=== PATIENT | male | born 1945 | race Caucasian/White ===

== ENCOUNTER 2016-06-08 16:48 | Inpatient (IN) | payer OTHER ==
[~2016-06-08] VITALS: Ht 175.3 cm; Wt 72.6 kg
[2016-06-08 16:52] VITALS: BP 110/69
--- NOTE | 2016-06-08 17:08 | NUR ---
DR. JANSEN AT BEDSIDE.
--- NOTE | 2016-06-08 17:13 | NUR ---
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 ER MD MADE AWARE OF PT STATUS.
[2016-06-08] MEDS ORDERED: NACL 0.9% 1,000 ML IV SCH (17:14)
--- NOTE | 2016-06-08 17:15 | NUR ---
CLEM SALDIVAR RYAN LEFT CONTACT PHONE NUMBERS TEL , FAX
--- NOTE | 2016-06-08 18:40 | NUR ---
AAO PT AMBULATES TO THE RESTROOM
--- NOTE | 2016-06-08 18:47 | NUR ---
PT AMBULATES BACK TO BED, PLACED BACK ON MONITOR, NO C/O PAIN AT THIS TIME
[2016-06-08] MEDS ORDERED: HYDROcodone/APAP 7.5/325 MG 1 TAB PO PRN (19:10)
[2016-06-08] MEDS ORDERED: ONDANSETRON 4 MG/2 ML VIAL IVP PRN (19:10)
[2016-06-08] MEDS ORDERED: NACL 0.9% 1,000 ML IV ONE (19:10)
[2016-06-08] MEDS ORDERED: MORPHINE SULFATE 2 MG/ML SYR IVP PRN (19:10)
[2016-06-08] MEDS ORDERED: ACETAMINOPHEN 325 MG TAB PO PRN (19:10)
--- NOTE | 2016-06-08 19:24 | NUR ---
REPORT GIVEN TO RICHIE MORRISON
--- NOTE | 2016-06-08 20:04 | NUR ---
Patient will be admitted to care of DR. SANCHEZ. Admited to TELE. Will go to room 110A. Belongings list completed. Report to RICHIE RUEDA.
[2016-06-08] MEDS ORDERED: CLARITIN10 MG PO (20:14)
[2016-06-08] MEDS ORDERED: FLONASE NASAL50 MCG NS (20:14)
[2016-06-08] MEDS ORDERED: SEROQUEL100 MG PO (20:14)
--- NOTE | 2016-06-08 20:31 | NUR ---
Pt report given to RICHIE RUEDA. Transfer of care at this time.
--- NOTE | 2016-06-08 20:50 | NUR ---
PATIENT ARRIVED TO UNIT FROM ED VIA GURNEY, PATIENT IS AWAKE, AAO X4, ON ROOM AIR, NO SOB OR SIGN OF DISTRESS AT THIS TIME, PATIENT IS AMBULATORY AND STEADY ON HIS FEET. PATIENT SKIN IS INTACT, IV TO RIGHT FOREARM 20G PATENT AND INTACT. PATIENT DENIES PAIN AT THIS TIME. PATIENT VOIDED IN THE URINAL, NOTED DARK RED URINE, PATIENT STATES THATS HOW HIS URINE HAS LOOKED. DENIES PAIN WITH URINATION JUST STATED HE HAS INCREASED URGENCY. DISCUSSED PLAN OF CARE WITH PATIENT, PT VERBALIZED UNDERSTANDING. ORIENTED PT TO ROOM AND CALL LIGHT, SAFETY MEASURES CHECKED, CALL LIGHT WITHIN REACH, WILL CONTINUE TO MONITOR.
--- NOTE | 2016-06-08 22:00 | NUR ---
PATIENT UP RESTING IN BED WATCHING TV, NO SIGN OF DISTRESS, CALL LIGHT WITHIN REACH. WILL CONTINUE TO MONITOR.
[2016-06-09] VITALS: BP 133/76
[2016-06-09] MEDS ORDERED: INFLUENZA VIRUS VACCINE QUAD 0.5 ML SYR IMVAC PRN
[2016-06-09] MEDS ORDERED: PNEUMOCOCCAL VACCINE 23 MCG/0.5 ML VIAL IMVAC PRN
--- NOTE | 2016-06-09 00:45 | NUR ---
VITAL SIGNS STABLE, NO SOB OR SIGN OF DISTRESS, PATIENT UP RESTING IN BED. NO COMPLAINTS AT THIS TIME. PATIENT CONTINUING TO VOID DARK RED URINE. WILL CONTINUE TO MONITOR.
--- NOTE | 2016-06-09 02:21 | NUR ---
PATIENT SLEEPING COMFORTABLE IN BED, NO SOB OR SIGN OF DISTRESS AT THIS TIME, CALL LIGHT WITHIN REACH. WILL CONTINUE TO MONITOR. EMPTIED URINAL OF 600ML RED URINE
[2016-06-09 04:00] VITALS: BP 138/82
--- NOTE | 2016-06-09 04:18 | NUR ---
VITAL SIGNS STABLE, NO SOB OR SIGN OF DISTRESS, PATIENT UP RESTING IN BED, CALL LIGHT WITHIN REACH. WILL CONTINUE TO MONITOR
--- NOTE | 2016-06-09 07:30 | NUR ---
RECEIVED PT ON BED AAOX4. NO SOB NOTED. NO C/O PAIN AT THIS TIME. IV TO RIGHT FOREARM PATENT AND INTACT. CHEST CLEAR. ABDOMEN SOFT, BOWEL SOUNDS PRESENT. NO EDEMA NOTED. PT URINATING LARGE AMOUNTS OF BLOODY URINE, NO CLOTS NOTED. INSTRUCTED PT TO CALL FOR ASSISTANCE, CALL LIGHT WITHIN REACH, PT VERBALIZED UNDERSTANDING.
--- NOTE | 2016-06-09 07:32 | NUR ---
ENDORSED PATIENT TO DAY RN AT BEDSIDE, PATIENT IN STABLE CONDITION.
[2016-06-09 08:00] VITALS: BP 104/72
--- NOTE | 2016-06-09 08:37 | NUR ---
PATIENT HAS BEEN SCREENED AND CATEGORIZED MODERATE NUTRITION RISK. PATIENT WILL BE SEEN WITHIN 3-5 DAYS OF ADMISSION. 06/11/16-06/13/[address]
[2016-06-09] MEDS: DOCUSATE SODIUM 100 MG GELCAP PO SCH (09:29)
[2016-06-09] MEDS: FAMOTIDINE 20 MG TAB PO SCH (09:29)
--- NOTE | 2016-06-09 10:30 | NUR ---
PT HAS BEEN URINAL LARGE AMOUNTS OF BLOODY URINE. NO C/O PAIN. DR. LAGUNA (DR. SANCHEZ RESIDENT) MADE AWARE.
[2016-06-09 12:00] VITALS: BP 125/72
[2016-06-09] MEDS ORDERED: INSULIN LISPRO SLIDING SCALE 100 UNITS/ML VIAL SUBQ PRN ×2 (12:55)
[2016-06-09] MEDS ORDERED: DEXTROSE 50% 50 ML SYR IVP PRN ×2 (12:55)
--- NOTE | 2016-06-09 13:00 | NUR ---
PT ALREADY ATE LUNCH, CONSUMED 100% OF FOOD SERVED, TOLERATED WELL. INSTRUCTED PT NPO UNTIL DR. SEBASTIAN WILL COME TO SEE PT TODAY. PT VERBALIZED UNDERSTANDING.
[2016-06-09] MEDS: NACL 0.9% 1,000 ML IV SCH ×3 (13:10→22:16)
[2016-06-09 16:00] VITALS: BP 108/70
--- NOTE | 2016-06-09 16:00 | NUR ---
PT RESTING. NO SOB NOTED. NPO MAINTAINED.
[2016-06-09] MEDS ORDERED: BLOOD GLUCOSE MONITORING 1 DEV DEV FS SCH (16:30)
[2016-06-09] MEDS: BLOOD GLUCOSE MONITORING 1 DEV DEV FS SCH ×2 (17:16→21:25)
--- NOTE | 2016-06-09 18:00 | NUR ---
DR. NICOLE HERE TO SEE PT.
--- NOTE | 2016-06-09 19:20 | NUR ---
PT AWAKE, NO SOB NOTED. NO COMPLAINTS MADE. WILL ENDORSE TO NEXT SHIFT NURSE FOR CONTINUITY OF CARE.
--- NOTE | 2016-06-09 19:25 | NUR ---
RECEIVED FROM AM RN IN BED SITTING UP AND WATCHING TV. A/O X 4. CLEAR SPEECH. CALL LIGHT WITH IN REACH AND CARE PLANS FOR THE NIGHT DISCUSSED WITH PT. ENCOURAGED TO USE CALL LIGHT FOR ANY HELP HE MAY NEED OR IF IN PAIN. NO PAIN AT THIS TIME. TELEMETRY MONITORING.
[2016-06-09 20:03] VITALS: BP 126/79
[2016-06-09] MEDS ORDERED: QUEtiapine FUMARATE 100 MG TAB PO SCH (21:00)
[2016-06-09] MEDS: CALCIUM CARBONATE 500 MG TAB PO SCH (21:20)
[2016-06-09] MEDS: FLUTICASONE NASAL 50 MCG/ACTUATION 16 GM BTL NS SCH (21:20)
--- NOTE | 2016-06-09 22:00 | NUR ---
AWAKE AND WATCHING TV. NO COMPLAINTS DONE. SEEN BY MD SEBASTIAN EARLIER. NO ORDERS GIVEN.
[2016-06-10 00:29] VITALS: BP 103/70
--- NOTE | 2016-06-10 00:53 | NUR ---
SLEEPING AT THIS TIME. NO SOB. CALL LIGHT WITH IN REACH. NO RESTLESSNESS NOTED.
--- NOTE | 2016-06-10 02:20 | NUR ---
SLEEPING. NO RESTLESSNESS. IVF SITE TO RIGHT FOREARM INTACT AND NO INFILTRATION. WITH GOOD BLOOD RETURN.
[2016-06-10 04:00] VITALS: BP 85/52
--- NOTE | 2016-06-10 04:00 | NUR ---
PT. AWAKE AND WENT TO RESTROOM TO URINATE. STILL WITH REDDISH URINE NOTED. IVF CONTINUOS. PT. MOSTLY INDEPENDENT BUT WITH DISORIENTATION AT TIMES. NO DIZZINESS NOTED. TELEMETRY MONITORING.
--- NOTE | 2016-06-10 05:58 | NUR ---
NIKUNJ NEVAREZ BIOMEDICAL INSTRUMENT TECHNICIAN FOR RHODA ALEMAN WHICH IS MD GÓMEZ. WILL RELAY BP OF 82/46 . PT. ALERT WHEN AWAKE. ASYMPTOMATIC. TELEMETRY MONITORING.
--- NOTE | 2016-06-10 06:22 | NUR ---
MD GÓMEZ CALLED BACK AND STATED THAT WE WILL WAIT FOR AM HEMOGLOBIN RESULT AND LET THE AM RESIDENTS TAKE CARE OF IT. MADE CHARGE NURSE AWARE.
[2016-06-10] MEDS: NACL 0.9% 1,000 ML IV SCH (06:37)
[2016-06-10] MEDS: BLOOD GLUCOSE MONITORING 1 DEV DEV FS SCH ×2 (06:37→11:30)
--- NOTE | 2016-06-10 07:15 | NUR ---
RECEIVED PATIENT REPORT AT BEDSIDE. PATIENT AWAKE, ALERT AND ORIENTED. NO S/S OF DISTRESS NOTED. NO C/O OF PAIN. PATIENT ON ROOM AIR. IV TO THE RIGHT FA INTACT WITH IVF INFUSING WELL. PATIENT ON TELE MONITORING. BED LOWERED WITH CALL LIGHT WITHIN REACH. WILL CONTINUE TO MONITOR
[2016-06-10 08:00] VITALS: BP 108/70
[2016-06-10] MEDS ORDERED: ASPIRIN 81 MG TAB.CHEW PO SCH (09:00)
[2016-06-10] MEDS ORDERED: LORATADINE 10 MG TAB PO SCH (09:00)
[2016-06-10] MEDS: FAMOTIDINE 20 MG TAB PO SCH (09:15)
[2016-06-10] MEDS: DOCUSATE SODIUM 100 MG GELCAP PO SCH (09:15)
[2016-06-10] MEDS: FLUTICASONE NASAL 50 MCG/ACTUATION 16 GM BTL NS SCH (09:16)
[2016-06-10] MEDS: CALCIUM CARBONATE 500 MG TAB PO SCH (09:16)
--- NOTE | 2016-06-10 11:21 | NUR ---
CONSENT OBTAINED FROM THE PATIENT FOR CT
[2016-06-10 12:00] VITALS: BP 103/67
[2016-06-10] MEDS ORDERED: SIMVASTATIN20 M1 PO (12:01)
[2016-06-10] MEDS ORDERED: ASPIRIN ADULT L81 M1 PO (12:01)
--- NOTE | 2016-06-10 13:30 | NUR ---
PATIENT IN BED, WATCHING TELEVISION. NO S/S OF DISTRESS NOTED
--- NOTE | 2016-06-10 14:10 | NUR ---
CALLED PATIENT'S COMPUTER PROGRAMMING PROFESSOR REGARDING D/C HOME , THEY WILL BE HERE AT 3PM TO COMPENSATION AGENT PATIENT.
[2016-06-10] MEDS ORDERED: NATURAL IRON65 MG PO (14:22)
--- NOTE | 2016-06-10 15:00 | NUR ---
PATIENT DISCHARGED BACK TO BOARD AND CARE. DISCHARGE INSTRUCTIONS AND DISCHARGE PRESCRIPTIONS GIVEN. PATIENT VERBALIZED UNDERSTANDING. IV LINE DISCONTINUED. TELE LEADS TAKEN OFF. PATIENT SIGNED ALL HIS DISCHARGE PAPERS. PATIENT LEFT WITH ALL HIS BELONGINGS AND DISCHARGE DOCUMENTS. PATIENT LEFT IN STABLE CONDITION
[2016-06-10] MEDS ORDERED: SIMVASTATIN 20 MG TAB PO SCH (21:00)
== END 2016-06-10 15:00 | DRG 686 ==
LOC: MED 16:48 → MTU 19:14
PROVIDERS: ADMIT Family Medicine; ATTEND Family Medicine
DX: D49.4 Neoplasm of unspecified behavior of bladder (principal); N17.0 Acute kidney failure with tubular necrosis; D50.0 Iron deficiency anemia secondary to blood loss (chronic); I10 Essential (primary) hypertension; E78.00 Pure hypercholesterolemia, unspecified; M19.90 Unspecified osteoarthritis, unspecified site; F20.9 Schizophrenia, unspecified; F17.210 Nicotine dependence, cigarettes, uncomplicated; E83.51 Hypocalcemia; E11.51 Type 2 diabetes mellitus with diabetic peripheral angiopathy without gangrene; I73.9 Peripheral vascular disease, unspecified; Z79.899 Other long term (current) drug therapy

== ENCOUNTER 2017-07-06 12:33 | Inpatient (IN) | payer OTHER ==
[~2017-07-06] VITALS: Ht 175.3 cm; Wt 57.6 kg
[~2017-07-06 12:33] MED LIST: FERR-252 PO; FLONAS NS; LORA10TA19 PO; QUET100T PO; SIMV20TA6 PO
[2017-07-06 12:41] VITALS: BP 109/66
--- NOTE | 2017-07-06 13:44 | NUR ---
RECEIVED PT FROM TRIAGE, PT LAYING DOWN ON GURNEY, CAREGIVER/PERFORATOR LOADER AT BEDSIDE. PT HERE FOR HEMATURIA X 3 MONTHS, DENIES FEVERS/CHILLS. DENIES ABD PAIN,N,V,D. RESP EVEN AND UNLABORED, IN NAD. ABD SOFT, FLAT, NON TENDER. +BS X4 QUADS. PER PT , HE'S BEEN FOLLOWING UP WITH UROLOGIST-UNCLEAR OF DIAGNOSIS OR TREATMENT. SKIN PALE IN COLOR, DRY. PT ONLY REPORTS SCHIZOPHRENIA HISTORY. ER MD DR BLANKENSHIP NOTIFIED OF PT'S COMPLAINT. TOÑA FOR ER MD HIGH. URINAL PROVIDED FOR URINE COLLECTION.
[2017-07-06] MEDS ORDERED: NACL 0.9% 1,000 ML IV SCH (14:22)
[2017-07-06 14:51] LABS: WHITE BLOOD COUNT (AUTO) 6.4 K/uL (4.8-10.8)
[2017-07-06 14:55] LABS: MEAN CORPUSCULAR HEMOGLOBIN 24 pg (27-31); MEAN CORPUSCULAR HGB CONC 32 g/dL (33-37); MEAN CORPUSCULAR VOLUME 74.1 fL (80-94); PLATELET COUNT (AUTO) 160 K/uL (140-450); RED BLOOD CELL COUNT(AUTO) 2.22 MIL/uL (4.20-6.10); RED CELL DISTRIBUTION WIDTH 39.1 % (11.6-13.7)
[2017-07-06 15:02] LABS: HEMATOCRIT 16.5 % (36-52); HEMOGLOBIN 5.2 g/dL (12.0-18.0)
[2017-07-06] MEDS ORDERED: INSULIN LISPRO SLIDING SCALE 100 UNITS/ML VIAL SUBQ PRN (15:15)
[2017-07-06] MEDS ORDERED: ACETAMINOPHEN 325 MG TAB PO PRN (15:15)
[2017-07-06] MEDS ORDERED: DEXTROSE 50% 50 ML SYR IVP PRN (15:15)
[2017-07-06] MEDS ORDERED: HYDROcodone/APAP 5/325 MG 1 TAB TAB PO PRN (15:15)
[2017-07-06] MEDS ORDERED: ONDANSETRON 4 MG/2 ML VIAL IVP PRN (15:15)
[2017-07-06 15:17] LABS: LYMPHOCYTES % (MANUAL) 22 % (20-46); MONOCYTES % (MANUAL) 3 % (5-12)
--- NOTE | 2017-07-06 15:20 | NUR ---
Urine collected and taken to lab.
[2017-07-06 15:38] LABS: APPEARANCE,URINE TURBID (CLEAR); BLOOD, URINE 3+ (NEGATIVE); COLOR,URINE RED (YELLOW)
[2017-07-06 15:47] LABS: RBC,URINE TOO NUMEROUS TO COUN /HPF (0-5)
[2017-07-06 15:48] LABS: WBC,URINE 0-5 (RARE) /HPF (0-5)
[2017-07-06 15:56] LABS: ALBUMIN 3.1 g/dL (3.4-5.0); CARBON DIOXIDE 27.5 mmol/L (21-32); CREATININE 0.8 mg/dL (0.7-1.3); POTASSIUM 3.5 mmol/L (3.5-5.1); TOTAL BILIRUBIN 0.2 mg/dL (0.0-1.0)
[2017-07-06 16:25] LABS: PROTHROMBIN TIME 10.5 secs (10.8-13.4)
[2017-07-06 16:34] LABS: CHOL/HDL RATIO 2.1 (1-4.5); FREE T4 (FREE THYROXINE) 0.93 ng/dL (0.76-1.46); THYROID STIMULATING HORMONE 0.66 uIU/mL (0.34-3.74)
[2017-07-06 16:43] LABS: BARBITURATE, URINE NEG. ng/ml (NEG <=200); BENZODIAZEPINE, URINE NEG. ng/mL (NEG <=200); CANNABINOID, URINE NEG. ng/mL (NEG <=50); COCAINE, URINE NEG. ng/mL (NEG <=300); OPIATE, URINE NEG. ng/mL (NEG <=2000); PHENCYCLIDINE SCREEN,URINE NEG. ng/mL (NEG <=25)
--- NOTE | 2017-07-06 16:50 | NUR ---
Patient will be admitted to care of RICHIE Robins. Admited to Tele, ICU. Will go to room 2 ICU. Belongings list completed. Pt tolerated transfer well.
--- NOTE | 2017-07-06 17:15 | NUR ---
PT RECEIVED FROM ER VIA UmaChaka MediaKRISTIAN. PT A/O X4, ABLE TO VERBALIZE NEEDS. PT ORIENTED TO ICU, BED, STAFF. PUPILS REACTIVE TO LIGHT. SKIN PALE, DRY AND WARM TO TOUCH. LUNGS SOUND DIMINISHED. RIGHT AC 20 G. INTACT. ABDOMEN SOFT, ROUND AND NON-TENDER. ACTIVE BOWEL SOUND IN ALL FOUR QUADRANTS. SKIN INTACT. KEPT HOB ELEVATED. BED IN LOW POSITION LOCKED. WILL CONTINUE TO MONITOR.
--- NOTE | 2017-07-06 17:45 | NUR ---
STARTED BLOOD TRANSFUSION.
--- NOTE | 2017-07-06 18:00 | NUR ---
NO BT REACTION NOTED.
[2017-07-06] MEDS: BLOOD GLUCOSE MONITORING 1 DEV DEV FS SCH ×2 (19:20→21:08)
[2017-07-06] MEDS: FERRIC GLUCONATE 125 MG in NACL 0.9% 100 ML IV SCH (19:27)
--- NOTE | 2017-07-06 19:35 | NUR ---
REPORT RECEIVED FROM MORNING RN. PT IS AWAKE AND VERBAL. A&O X3. PERRL. BILATERAL LUNG SOUNDS DIMINISHED. RR EVEN AND UNLABORED. BILATERAL HANDS PHYSICAL THERAPY AID EQUAL. CAP REFILL WITHIN 3 SEC. PRBC BLOOD TRANSFUSION IS INFUSING. SIGNED CONSENT CHECKED. VS WITHOUT ACUTE DISTRESS. IV LINES TO RIGHT AC 20G AND LEFT WRIST 22G. ASYMPTOMATIC AND PATENT. DENIES PAIN OR DISCOMFORT. USES URINAL AND NOTED HEMATURIA. AFEBRILE. CALL LIGHT IN REACH AND BED KEPT TO THE LOWEST. WILL CONTINUE TO MONITOR.
--- NOTE | 2017-07-06 19:40 | NUR ---
REPORT GIVEN TO NOC SHIFT RN FOR CONTINUITY OF CARE. PT ON STABLE CONDITION.
[2017-07-06 20:00] VITALS: BP 128/78
--- NOTE | 2017-07-06 20:50 | NUR ---
1ST BAG OF PRBC TRANSFUSION COMPLETED WITHOUT ANY A/R.
--- NOTE | 2017-07-06 20:50 | NUR ---
2ND BAG OF PRBC STARTED. WILL CONTINUE TO MONITOR FOR ANY A/R.
[2017-07-06] MEDS: SIMVASTATIN 20 MG TAB PO SCH (21:08)
[2017-07-06] MEDS: QUEtiapine FUMARATE 100 MG TAB PO SCH (21:08)
--- NOTE | 2017-07-06 21:13 | NUR ---
MEDICATIONS ADMINISTERED ORDERED. BD=[id number]. NO INSULIN COVERAGE NEEDED. ASSISTED PT WITH URINAL AND NOTED 250ML OF HEMATURIA-LEE COLOR. WILL CONTINUE TO MONITOR.
[2017-07-07] VITALS (7 sets, daily range): BP systolic 110–151; BP diastolic 69–92
--- NOTE | 2017-07-07 00:03 | NUR ---
NEW ORDER FOR CBC NOTED BUT PRBC TRANSFUSION STILL ON GOING. LABORATORY MADE AWARE.
--- NOTE | 2017-07-07 00:20 | NUR ---
2ND PRBC TRANSFUSION COMPLETED. VS STABLE. PT CONTNUES TO HAVE BRIGHT RED URINE IN THE URINAL. DENIES PAIN. WILL CONTINUE TO MONITOR.
--- NOTE | 2017-07-07 00:39 | NUR ---
PT WILL BE TRANSFERRING TO TELEMETRY ROOM 119A. PT MADE AWARE.
--- NOTE | 2017-07-07 01:35 | NUR ---
REPORT GIVEN TO RICHIE FRANCE IN TELEMETRY FOR CONTINUITY OF CARE. PT WILL BE TRANSFERRED TO TELEMETRY ROOM 119A. PT VS STABLE. PT LEFT WITH ALL HIS BELONGINGS AND ON TELEMETRY BOX.
--- NOTE | 2017-07-07 01:36 | NUR ---
PT TRANSFERRED FROM ICU IN STABLE CONDITION. NO S/S OF DISTRESS NOTED. RR EVEN/UNLABORED, VSS. WILL CONTINUE TO MONITOR
--- NOTE | 2017-07-07 02:39 | NUR ---
LAB HERE FOR CBC DRAW
[2017-07-07 03:51] LABS: BASOPHILS # (AUTO) 0.1 K/uL (0.00-0.22); EOSINOPHILS # (AUTO) 0.1 K/uL (0-0.4); MEAN CORPUSCULAR HEMOGLOBIN 25 pg (27-31); MONOCYTES # (AUTO) 0.4 K/uL (0.8-1.0); PLATELET COUNT (AUTO) 153 K/uL (140-450); WHITE BLOOD COUNT (AUTO) 4.7 K/uL (4.8-10.8)
[2017-07-07 03:57] LABS: BASOPHILS % (AUTO) 1.4 % (0.0-2.0); EOSINOPHILS % (AUTO) 2.4 % (0.0-4.0); HEMATOCRIT 22.5 % (36-52); HEMOGLOBIN 7.2 g/dL (12.0-18.0); LYMPHOCYTES # (AUTO) 1.3 K/uL (2.0-11.5); LYMPHOCYTES % (AUTO) 27.5 % (20.5-51.1); MEAN CORPUSCULAR HGB CONC 32 g/dL (33-37); MEAN CORPUSCULAR VOLUME 77.6 fL (80-94); MONOCYTES % (AUTO) 8.6 % (1.7-9.3); NEUTROPHILS # (AUTO) 2.8 K/uL (1.8-7.7); NEUTROPHILS % (AUTO) 60.1 % (42.2-75.2); RED BLOOD CELL COUNT(AUTO) 2.91 MIL/uL (4.20-6.10)
[2017-07-07 04:08] LABS: RED CELL DISTRIBUTION WIDTH 32.9 % (11.6-13.7)
[2017-07-07 06:28] LABS: BASOPHILS # (AUTO) 0.1 K/uL (0.00-0.22); BASOPHILS % (AUTO) 1.1 % (0.0-2.0); EOSINOPHILS # (AUTO) 0.2 K/uL (0-0.4); EOSINOPHILS % (AUTO) 3.6 % (0.0-4.0); HEMATOCRIT 22.9 % (36-52); HEMOGLOBIN 7.2 g/dL (12.0-18.0); LYMPHOCYTES # (AUTO) 1.4 K/uL (2.0-11.5); LYMPHOCYTES % (AUTO) 26.5 % (20.5-51.1); MEAN CORPUSCULAR HEMOGLOBIN 24 pg (27-31); MEAN CORPUSCULAR HGB CONC 31 g/dL (33-37); MEAN CORPUSCULAR VOLUME 77.8 fL (80-94); MONOCYTES # (AUTO) 0.4 K/uL (0.8-1.0); MONOCYTES % (AUTO) 8.3 % (1.7-9.3); NEUTROPHILS # (AUTO) 3.2 K/uL (1.8-7.7); NEUTROPHILS % (AUTO) 60.5 % (42.2-75.2); PLATELET COUNT (AUTO) 157 K/uL (140-450); RED BLOOD CELL COUNT(AUTO) 2.95 MIL/uL (4.20-6.10); RED CELL DISTRIBUTION WIDTH 32.9 % (11.6-13.7); WHITE BLOOD COUNT (AUTO) 5.2 K/uL (4.8-10.8)
--- NOTE | 2017-07-07 06:29 | NUR ---
MADE JAMIE AWARE THAT PT IS READY TO GO FOR CT
[2017-07-07] MEDS: BLOOD GLUCOSE MONITORING 1 DEV DEV FS SCH ×4 (06:30→20:12)
--- NOTE | 2017-07-07 07:23 | NUR ---
REPORT GIVEN TO DAY NURSE FOR CONTINUITY OF CARE, PT IN STABLE CONDITION.
[2017-07-07 07:24] LABS: ANION GAP 11.1 (8-16); CARBON DIOXIDE 26.7 mmol/L (21-32); CREATININE 0.7 mg/dL (0.7-1.3); POTASSIUM 3.8 mmol/L (3.5-5.1)
--- NOTE | 2017-07-07 07:24 | NUR ---
PATIENT LYING DOWN IN BED SLEEPING, AROUSABLE BY VOICE. NO DISTRESS NOTED. DENIES ANY PAIN AT THIS TIME. RESPIRATIONS EVEN, UNLABORED, ON ROOM AIR. AAOX4, CALM, COOPERATIVE, SKIN COLOR APPROPRIATE TO ETHNICITY, WARM TO TOUCH. SKIN IS INTACT. GROSS HEMATURIA NOTED IN URINE AT URINAL AT BEDSIDE. LUNGS CTA ON ALL LOBES. ABDOMEN SOFT, NON-DISTENDED. IV SITE INTACT, PATENT AND ON SALINE LOCK. REVIEWED PLAN OF CARE WITH PATIENT. PATIENT VERBALIZED UNDERSTANDING AND GIVES CONSENT TO DO CT SCAN OF ABD/PELVIS W/WO CONTRAST LATER TODAY. SAFETY MEASURES IN PLACE, CALL LIGHT WITHIN REACH. WILL CONTINUE TO MONITOR.
[2017-07-07 07:36] LABS: MAGNESIUM 2.2 mg/dL (1.8-2.4); PHOSPHORUS 3.6 mg/dL (2.5-4.9)
[2017-07-07] MEDS: FLUTICASONE NASAL 50 MCG/ACTUATION 16 GM BTL NS SCH (09:00)
[2017-07-07] MEDS: PANTOPRAZOLE 40 MG TABEC PO SCH (09:15)
[2017-07-07] MEDS: LORATADINE 10 MG TAB PO SCH (09:15)
[2017-07-07] MEDS: DOCUSATE SODIUM 100 MG GELCAP PO SCH (09:15)
[2017-07-07] MEDS: FERROUS SULFATE 325 MG TABEC PO SCH (09:16)
--- NOTE | 2017-07-07 09:28 | NUR ---
PATIENT LYING DOWN IN BED COMFORTABLY. NO DISTRESS NOTED. DENIES ANY PAIN. SCHEDULED MEDICATIONS DUE GIVEN. RADIOLOGIST TO COME ASSEMBLER FILTERS PATIENT FOR CT ABD/PELVIS W/WO CONTRAST SOON. PATIENT NOTIFIED AND VERBALIZED UNDERSTANDING. SAFETY MEASURES IN PLACE, CALL LIGHT WITHIN REACH. WILL CONTINUE TO MONITOR.
--- NOTE | 2017-07-07 09:36 | NUR ---
RADIOLOGIST AT BEDSIDE READY TO TAKE PATIENT TO RADIOLOGY FOR CT SCAN OF ABD/PELVIS. WILL CONTINUE TO MONITOR WHEN PATIENT RETURNS TO BED.
--- NOTE | 2017-07-07 10:00 | NUR ---
PATIENT BACK TO [facility] BED FROM RADIOLOGIST. SAFETY MEASURES IN PLACE, CALL LIGHT WITHIN REACH. WILL CONTINUE TO MONITOR.
--- NOTE | 2017-07-07 10:33 | NUR ---
PATIENT HAS BEEN SCREENED AND CATEGORIZED MODERATE NUTRITION RISK. PATIENT WILL BE SEEN WITHIN 3-5 DAYS OF ADMISSION. 07/09/17 - 07/11/[address]
[2017-07-07 12:29] LABS: FOLIC ACID 13.8 ng/mL (>3.0)
--- NOTE | 2017-07-07 13:00 | NUR ---
PATIENT SITTING IN BED WATCHING TV WITH LUNCH TRAY IN FRONT. NO DISTRESS NOTED. DENIES ANY PAIN AT THIS TIME. CONTINUES TO HAVE HEMATURIA WITH LEE COLORED URINE IN URINAL. SAFETY MEASURES IN PLACE, CALL LIGHT WITHIN REACH. WILL CONTINUE TO MONITOR.
--- NOTE | 2017-07-07 15:32 | NUR ---
PATIENT LYING IN BED WATCHING TV. NO DISTRESS NOTED. DENIES ANY PAIN. CONDITION UNCHANGED. WILL CONTINUE TO MONITOR.
[2017-07-07 17:20] LABS: BASOPHILS # (AUTO) 0.1 K/uL (0.00-0.22); EOSINOPHILS # (AUTO) 0.1 K/uL (0-0.4); EOSINOPHILS % (AUTO) 1.8 % (0.0-4.0); HEMATOCRIT 26.9 % (36-52); HEMOGLOBIN 8.8 g/dL (12.0-18.0); LYMPHOCYTES # (AUTO) 1.1 K/uL (2.0-11.5); MEAN CORPUSCULAR HEMOGLOBIN 25 pg (27-31); MEAN CORPUSCULAR HGB CONC 33 g/dL (33-37); MEAN CORPUSCULAR VOLUME 77.1 fL (80-94); MONOCYTES # (AUTO) 0.3 K/uL (0.8-1.0); MONOCYTES % (AUTO) 5.9 % (1.7-9.3); NEUTROPHILS # (AUTO) 3.9 K/uL (1.8-7.7); NEUTROPHILS % (AUTO) 71.3 % (42.2-75.2); PLATELET COUNT (AUTO) 191 K/uL (140-450); RED BLOOD CELL COUNT(AUTO) 3.49 MIL/uL (4.20-6.10); RED CELL DISTRIBUTION WIDTH 33.2 % (11.6-13.7)
[2017-07-07 17:59] LABS: WHITE BLOOD COUNT (AUTO) 5.4 K/uL (4.8-10.8)
[2017-07-07] MEDS: FERRIC GLUCONATE 125 MG in NACL 0.9% 100 ML IV SCH (17:59)
--- NOTE | 2017-07-07 18:01 | NUR ---
PATIENT SITTING IN BED WITH DINNER TRAY IN FRONT. NO DISTRESS NOTED. DENIES ANY PAIN. SCHEDULED MEDICATION DUE GIVEN. WILL CONTINUE TO MONITOR.
--- NOTE | 2017-07-07 19:30 | NUR ---
GAVE REPORT TO LEADERSHIP COACH NURSE FOR CONTINUITY OF CARE. PATIENT IN STABLE CONDITION.
--- NOTE | 2017-07-07 19:31 | NUR ---
RECEIVED REPORT FROM DAY NURSE, NO DISTRESS NOTED. DENIES ANY PAIN AT THIS TIME. RESPIRATIONS EVEN, UNLABORED, ON ROOM AIR. AAOX4, CALM, COOPERATIVE, SKIN COLOR WNL, WARM TO TOUCH. SKIN IS INTACT. GROSS HEMATURIA NOTED IN URINE AT URINAL AT BEDSIDE. LUNGS CTA ON ALL LOBES. ABDOMEN SOFT, NON-DISTENDED. IV SITE INTACT, PATENT AND ON SALINE LOCK. REVIEWED PLAN OF CARE WITH PATIENT. PATIENT VERBALIZED UNDERSTANDING AND GIVES CONSENT TO DO CT SCAN OF ABD/PELVIS W/WO CONTRAST LATER TODAY. SAFETY MEASURES IN PLACE, CALL LIGHT WITHIN REACH. WILL CONTINUE TO MONITOR.
[2017-07-07] MEDS: SIMVASTATIN 20 MG TAB PO SCH (20:12)
[2017-07-07] MEDS: QUEtiapine FUMARATE 100 MG TAB PO SCH (20:12)
--- NOTE | 2017-07-07 22:30 | NUR ---
PT RESTING COMFORTABLY IN BED, WATCHING TV, NO S/S OF DISTRESS NOTED. WILL CONTINUE TO MONITOR.
[2017-07-08] VITALS: BP 126/77
--- NOTE | 2017-07-08 | NUR ---
PT RESTING COMFORTABLY IN BED, NO S/S OF DISTRESS NOTED. WILL CONTINUE TO MONITOR.
--- NOTE | 2017-07-08 03:00 | NUR ---
PT RESTING COMFORTABLY IN BED, WATCHING TV, NO S/S OF DISTRESS NOTED. WILL CONTINUE TO MONITOR.
[2017-07-08 04:00] VITALS: BP 128/82
[2017-07-08] MEDS: BLOOD GLUCOSE MONITORING 1 DEV DEV FS SCH (06:46)
[2017-07-08 06:57] LABS: BASOPHILS # (AUTO) 0.1 K/uL (0.00-0.22); BASOPHILS % (AUTO) 1.1 % (0.0-2.0); EOSINOPHILS # (AUTO) 0.2 K/uL (0-0.4); EOSINOPHILS % (AUTO) 4.7 % (0.0-4.0); HEMATOCRIT 27.1 % (36-52); HEMOGLOBIN 8.7 g/dL (12.0-18.0); LYMPHOCYTES # (AUTO) 1.3 K/uL (2.0-11.5); LYMPHOCYTES % (AUTO) 24.1 % (20.5-51.1); MEAN CORPUSCULAR HEMOGLOBIN 25 pg (27-31); MEAN CORPUSCULAR HGB CONC 32 g/dL (33-37); MEAN CORPUSCULAR VOLUME 77.2 fL (80-94); MONOCYTES # (AUTO) 0.5 K/uL (0.8-1.0); MONOCYTES % (AUTO) 9.3 % (1.7-9.3); NEUTROPHILS # (AUTO) 3.2 K/uL (1.8-7.7); NEUTROPHILS % (AUTO) 60.8 % (42.2-75.2); PLATELET COUNT (AUTO) 207 K/uL (140-450); RED BLOOD CELL COUNT(AUTO) 3.52 MIL/uL (4.20-6.10); RED CELL DISTRIBUTION WIDTH 32.8 % (11.6-13.7); WHITE BLOOD COUNT (AUTO) 5.3 K/uL (4.8-10.8)
--- NOTE | 2017-07-08 07:11 | NUR ---
REPORT GIVEN TO DAY NURSE FOR CONTINUITY OF CARE, PT IN STABLE CONDITION.
--- NOTE | 2017-07-08 07:12 | NUR ---
RECEIVED REPORT FROM MBA INTERNSHIP NURSE. PATIENT LYING DOWN IN BED WATCHING TV. NO DISTRESS NOTED. DENIES ANY PAIN AT THIS TIME. RESPIRATIONS EVEN, UNLABORED, ON ROOM AIR. AAOX4, CALM, COOPERATIVE, SKIN COLOR APPROPRIATE TO ETHNICITY, WARM TO TOUCH. SKIN IS INTACT. HAS HEMATURIA WITH BRIGHT RED COLOR NOTED IN URINAL AT BEDSIDE. LUNGS CTA ON ALL LOBES. ABDOMEN SOFT, NON-DISTENDED. IV SITE INTACT PATENT, ON SALINE LOCK. REVIEWED PLAN OF CARE WITH PATIENT. PATIENT VERBALIZED UNDERSTANDING. SAFETY MEASURES IN PLACE, CALL LIGHT WITHIN REACH. WILL CONTINUE TO MONITOR.
[2017-07-08 08:00] VITALS: BP 98/60
[2017-07-08] MEDS ORDERED: ASCO500T45 PO (08:27)
[2017-07-08] MEDS ORDERED: FERR-20 PO (08:27)
[2017-07-08] MEDS: FLUTICASONE NASAL 50 MCG/ACTUATION 16 GM BTL NS SCH (09:00)
[2017-07-08] MEDS: DOCUSATE SODIUM 100 MG GELCAP PO SCH (09:17)
[2017-07-08] MEDS: FERROUS SULFATE 325 MG TABEC PO SCH (09:17)
[2017-07-08] MEDS: PANTOPRAZOLE 40 MG TABEC PO SCH (09:18)
[2017-07-08] MEDS: LORATADINE 10 MG TAB PO SCH (09:18)
--- NOTE | 2017-07-08 09:25 | NUR ---
PATIENT SITTING IN BED WATCHING TV. NO DISTRESS NOTED. DENIES ANY PAIN. SCHEDULED MEDICATIONS DUE GIVEN. WILL CONTINUE TO MONITOR.
--- NOTE | 2017-07-08 10:30 | NUR ---
PATIENT SITTING IN BED WATCHING TV. NO DISTRESS NOTED. PATIENT AWARE THAT HE WILL BE GOING BACK TO [facility] TODAY. CALLED [facility] AND GAVE REPORT TO MANAGER SCHOOL THERE. ANSWERED ALL OF MANAGER SCHOOL'S QUESTIONS. THEY WILL SEND SOMEONE TO TAKE PATIENT BACK TO [facility] IN AROUND 30 MINUTES. PROVIDED DISCHARGE INSTRUCTIONS TO PATIENT IN PREFERRED LANGUAGE OF INDONESIAN, FOLLOW-UP VISITS WITH PCP AND UROLOGIST FOR HEMATURIA AND BLADDER CA, NEW/CHANGED MEDICATIONS REGIMEN, DIET REGIMEN, AND DISEASE PROCESS/MANAGEMENT OF HEMATURIA. ANSWERED ALL OF PATIENT'S QUESTIONS REGARDING DISCHARGE. PATIENT VERBALIZED COMPLETE UNDERSTANDING. IV SITES REMOVED WITH MINIMAL BLOOD AND LUMEN COMPLETELY INTACT. ID BANDS REMOVED. PATIENT TO GET DRESSED AND AWAITING FOR [facility] TRANSPORTATION TO ARRIVE. WILL CONTINUE TO MONITOR.
--- NOTE | 2017-07-08 11:00 | NUR ---
[facility] TRANSPORTATION ARRIVED ON UNIT READY TO TAKE PATIENT HOME. PATIENT ALL DRESSED UP AND READY TO GO. ALL BELONGINGS AND PRESCRIPTIONS WITH PATIENT. ESCORTED PATIENT DOWN TO LOBBY VIA WHEELCHAIR. PATIENT AMBULATED FROM WHEELCHAIR TO PRIVATE VEHICLE WITH STEADY GAIT. PATIENT DISCHARGED AT THIS TIME TO [facility] IN STABLE CONDITION.
[2017-07-08 12:50] LABS: CARBON DIOXIDE 25.7 mmol/L (21-32); POTASSIUM 3.7 mmol/L (3.5-5.1)
--- NOTE | 2017-07-08 12:57 | NUR ---
RECEIVED A CALL FROM [facility]. WAS TOLD THAT THE PRESCRIPTION FOR THIS PATIENT WAS NOT SIGNED. BERENICE QUIROZMARKETING COMMUNICATIONS ASSOCIATECLIENT CARE CONSULTANT SPOKE WITH DR. MARIANO AND INFORMED HER TO WRITE A NEW PRESCRIPTION AND HAVE IT FAXED TO HIS PHARMACY. I CALLED SUDHIR QUIROZ AND INFORMED HIM. THE PHARMACY IS [facility] IN [place]. PHONE [phone] FAX [phone]. HE WILL FOLLOW UP.
== END 2017-07-08 11:00 | disposition home or self-care (01) | DRG 698 ==
LOC: MED 12:33 → MTU 15:20 → MIC 16:18 → MTU 07-07 01:35
PROVIDERS: ADMIT Family Medicine Sports Medicine; ATTEND Family Medicine Sports Medicine
PROC: 30233N1 Transfusion of Nonautologous Red Blood Cells into Peripheral Vein, Percutaneous Approach (ICD-10-PCS; principal; 2017-07-06)
DX: N32.89 Other specified disorders of bladder (principal); N17.0 Acute kidney failure with tubular necrosis; D62 Acute posthemorrhagic anemia; F20.9 Schizophrenia, unspecified; E11.9 Type 2 diabetes mellitus without complications; E78.00 Pure hypercholesterolemia, unspecified; F17.210 Nicotine dependence, cigarettes, uncomplicated; M19.90 Unspecified osteoarthritis, unspecified site; Z79.899 Other long term (current) drug therapy; I10 Essential (primary) hypertension
CPT/HCPCS: 36415; 71045; 80048; 80053; 80305; 81001; 82140; 82150; 82607; 82728; 82746; 82948; 83036; 83540; 83605; 83690; 83735; 83880; 84100; 84154; 84439; 84443; 84479; 84484; 85025; 85045; 85610; 85730; 86886; 86900; 86901; 86920; 87081; 93005; 93925; 93970; 99285; J1815; J2916; J7030; P9016; Q0092; Q9967

== ENCOUNTER 2017-08-23 09:28 | Inpatient (IN) | payer OTHER ==
[~2017-08-23] VITALS: Ht 175.3 cm; Wt 63.0 kg
[~2017-08-23 09:28] MED LIST changes: +ASCO500T45 PO; +FERR-20 PO
[2017-08-23 09:32] VITALS: BP 80/56
[2017-08-23] MEDS ORDERED: CARB1TAB37 PO (09:35)
--- NOTE | 2017-08-23 09:37 | NUR ---
PT TAKEN BY WHEELCHAIR TO BED 11
--- NOTE | 2017-08-23 09:41 | NUR ---
Report given to Jennifer QUIROZ.
--- NOTE | 2017-08-23 09:41 | NUR ---
72Y/M BIB SELF C/O HEMATURIA X 2 DAYS FROM [facility].AAOX4 WITH EVEN AND STEADY GAIT; PATIENT STATES PAIN OF 0/10 AT THIS TIME; VSS; PATIENT POSITIONED FOR COMFORT; HOB ELEVATED; BEDRAILS UP X1; BED DOWN. ER MD MADE AWARE OF PT STATUS.
--- NOTE | 2017-08-23 09:45 | NUR ---
DR JANSEN EVALUATING AT BEDSIDE
--- NOTE | 2017-08-23 10:09 | NUR ---
Abel daly in [facility] - 08/23/17 at 1010 by MEDHT XRAY AT BEDSIDE
--- NOTE | 2017-08-23 10:10 | NUR ---
PT IS NOT ABLE TO GIVE URINE AT THIS TIME
--- NOTE | 2017-08-23 10:20 | NUR ---
LAB BY PT BEDSIDE
--- NOTE | 2017-08-23 10:31 | NUR ---
XRAY AT BEDSIDE
[2017-08-23 10:39] LABS: MEAN CORPUSCULAR HEMOGLOBIN 23 pg (27-31); MEAN CORPUSCULAR HGB CONC 31 g/dL (33-37)
--- NOTE | 2017-08-23 10:41 | NUR ---
LAB AT BEDSIDE TO GET 2ND CULTURES
[2017-08-23 10:45] LABS: MEAN CORPUSCULAR VOLUME 73.4 fL (80-94); PLATELET COUNT (AUTO) 266 K/uL (140-450); RED BLOOD CELL COUNT(AUTO) 2.57 MIL/uL (4.20-6.10); RED CELL DISTRIBUTION WIDTH 27.8 % (11.6-13.7)
[2017-08-23 10:51] LABS: ALBUMIN 3.8 g/dL (3.4-5.0); ANION GAP 13.2 (8-16); CARBON DIOXIDE 27.9 mmol/L (21-32); POTASSIUM 4.1 mmol/L (3.5-5.1); TOTAL BILIRUBIN 0.3 mg/dL (0.0-1.0)
[2017-08-23 10:58] LABS: HEMATOCRIT 18.9 % (36-52); HEMOGLOBIN 5.8 g/dL (12.0-18.0)
[2017-08-23 10:59] LABS: LYMPHOCYTES % (MANUAL) 26 % (20-46); MONOCYTES % (MANUAL) 4 % (5-12)
--- NOTE | 2017-08-23 11:05 | NUR ---
PT STILL NOTE ABLE TO GIVE URINE AT THIS TIME
[2017-08-23] MEDS ORDERED: NACL 0.9% 500 ML IV ONE (11:10)
[2017-08-23] MEDS ORDERED: ONDANSETRON 4 MG/2 ML VIAL IM/IVP PRN (11:40)
[2017-08-23] MEDS ORDERED: ACETAMINOPHEN 325 MG TAB PO PRN (11:40)
[2017-08-23] MEDS ORDERED: MORPHINE SULFATE 2 MG/ML SYR IVP PRN (11:40)
[2017-08-23] MEDS ORDERED: HYDROcodone/APAP 7.5/325 MG 1 TAB PO PRN (11:40)
[2017-08-23] MEDS ORDERED: DOCUSATE SODIUM 100 MG GELCAP PO PRN (11:40)
--- NOTE | 2017-08-23 12:02 | NUR ---
Patient will be admitted to care of DR. CASTRO. Admited to TELE FLOOR. Will go to room 110 B. Belongings list completed. Report to MICAH QUIROZ.
[2017-08-23 12:20] VITALS: BP 108/62
--- NOTE | 2017-08-23 12:20 | NUR ---
PATIENT BROUGHT TO UNIT VIA GURNEY FROM THE ER. RECEIVED BEDSIDE REPORT FROM MUSHROOM CUTTER PAMELA. PATIENT IS AAOX4, ON ROOM AIR, HAS NO SIGNS AND SYMPTOMS OF ACUTE DISTRESS NOTED AT THIS TIME. WAS ABLE TO AMBULATE FROM GURNEY TO BED WITH ASSISTANCE. HAS IV TO THE LEFT HAND 22G. SITE IS CLEAN, DRY, PATENT AND INTACT. ORIENTED PATIENT TO THE ROOM, EXPLAINED CALL LIGHT. VERBALIZED UNDERSTANDING. PROVIDED URINAL. BED IN LOWEST POSITION, SIDE RAILS UP X2, CALL LIGHT WITHIN REACH. WILL CONTINUE TO MONITOR.
[2017-08-23 13:06] LABS: FREE T4 (FREE THYROXINE) 0.81 ng/dL (0.76-1.46); MAGNESIUM 2.2 mg/dL (1.8-2.4); PHOSPHORUS 3.6 mg/dL (2.5-4.9); THYROID STIMULATING HORMONE 0.56 uIU/mL (0.34-3.74)
[2017-08-23] MEDS ORDERED: DEXTROSE 50% 50 ML SYR IVP PRN (14:05)
--- NOTE | 2017-08-23 14:15 | NUR ---
STARTED BLOOD TRANSFUSION ON PATIENT. TOLERATING WELL.
--- NOTE | 2017-08-23 14:45 | NUR ---
PATIENT IS TOLERATING BLOOD TRANSFUSION WELL. NO SIGNS AND SYMPTOMS OF ACUTE DISTRESS NOTED AT THIS TIME. WILL CONTINUE TO MONITOR.
[2017-08-23 16:00] VITALS: BP 104/65
--- NOTE | 2017-08-23 16:45 | NUR ---
BLOOD TRANSFUSION IS FINISHED. PATIENT TOLERATED WELL. WILL INFORM DR REGALADO.
[2017-08-23] MEDS: BLOOD GLUCOSE MONITORING 1 DEV DEV FS SCH ×2 (16:54→21:17)
[2017-08-23] MEDS ORDERED: MECLIZINE 25 MG TAB PO PRN (17:10)
[2017-08-23] MEDS: INSULIN LISPRO SLIDING SCALE 100 UNITS/ML VIAL SUBQ PRN (17:25)
[2017-08-23 17:49] LABS: BASOPHILS # (AUTO) 0.1 K/uL (0.00-0.22); BASOPHILS % (AUTO) 1.2 % (0.0-2.0); EOSINOPHILS % (AUTO) 0.5 % (0.0-4.0); LYMPHOCYTES # (AUTO) 1.2 K/uL (2.0-11.5); LYMPHOCYTES % (AUTO) 25.6 % (20.5-51.1); MEAN CORPUSCULAR HEMOGLOBIN 24 pg (27-31); MEAN CORPUSCULAR HGB CONC 32 g/dL (33-37); MEAN CORPUSCULAR VOLUME 76.2 fL (80-94); MONOCYTES # (AUTO) 0.3 K/uL (0.8-1.0); MONOCYTES % (AUTO) 7.5 % (1.7-9.3); NEUTROPHILS % (AUTO) 65.2 % (42.2-75.2); PLATELET COUNT (AUTO) 241 K/uL (140-450); WHITE BLOOD COUNT (AUTO) 4.5 K/uL (4.8-10.8)
[2017-08-23 17:53] LABS: HEMOGLOBIN 6.1 g/dL (12.0-18.0)
--- NOTE | 2017-08-23 19:15 | NUR ---
ENDORSED PATIENT TO MAINTENANCE APPRENTICE RN FOR CONTINUITY OF CARE. PATIENT IN STABLE CONDITION.
--- NOTE | 2017-08-23 19:16 | NUR ---
RECEIVED REPORT FROM DAY SHIFT NURSE MICAH-RICHIE. PATIENT IS AAOX4, ON ROOM AIR, IV TO THE LEFT HAND 22G. SITE IS CLEAN, DRY, PATENT AND INTACT. NO S/S OF RESPIRATORY DISTRESS OR DISCOMFORT NOTED AT THIS TIME. DISCUSSED PLAN OF CARE AND PT VERBALIZED UNDERSTANDING. UPDATED WHITE BOARD. BED IN LOWEST POSITION, SIDE RAILS UP X2, BED ALARM ON. BED SIDE TABLE AND CALL LIGHT WITHIN REACH. WILL CONTINUE TO MONITOR.
[2017-08-23 20:00] VITALS: BP 98/70
--- NOTE | 2017-08-23 20:15 | NUR ---
SECOND BAG OF RBC'S STARTED. PT TOLERATING WELL. WILL CONTINUE TO MONITOR.
[2017-08-23] MEDS: SIMVASTATIN 20 MG TAB PO SCH (21:14)
[2017-08-23] MEDS: CARBIDOPA/LEVODOPA 25/100 MG 1 TAB PO SCH (21:14)
[2017-08-23] MEDS: NACL 0.9% 1,000 ML IV SCH (21:17)
--- NOTE | 2017-08-23 21:20 | NUR ---
BLOOD GLUCOSE 96. SCHEDULED MEDICATIONS GIVEN AND TOLERATED WELL. NO S/S OF RESPIRATORY DISTRESS OR DISCOMFORT NOTED AT THIS TIME. WILL CONTINUE TO MONITOR.
--- NOTE | 2017-08-23 23:30 | NUR ---
SECOND BAG OF RBC'S TRANSFUSION HAS FINISHED. NO S/S OF RESPIRATORY DISTRESS OR DISCOMFORT NOTED AT THIS TIME. PT TOLERATED WELL. WILL CONTINUE TO MONITOR.
[2017-08-24] VITALS (7 sets, daily range): BP systolic 99–113; BP diastolic 56–76
--- NOTE | 2017-08-24 | NUR ---
VITAL SIGNS TAKEN AND TOLERATED WELL. NO S/S OF RESPIRATORY DISTRESS OR DISCOMFORT NOTED AT THIS TIME. WILL CONTINUE TO MONITOR.
[2017-08-24] MEDS: NACL 0.9% 1,000 ML IV SCH ×4 (00:16→21:51)
[2017-08-24 00:19] LABS: EOSINOPHILS % (AUTO) 1.1 % (0.0-4.0); HEMATOCRIT 22.8 % (36-52); HEMOGLOBIN 7.4 g/dL (12.0-18.0); LYMPHOCYTES # (AUTO) 1.5 K/uL (2.0-11.5); LYMPHOCYTES % (AUTO) 36.5 % (20.5-51.1); MEAN CORPUSCULAR HEMOGLOBIN 25 pg (27-31); MEAN CORPUSCULAR HGB CONC 32 g/dL (33-37); MEAN CORPUSCULAR VOLUME 77.3 fL (80-94); MONOCYTES # (AUTO) 0.4 K/uL (0.8-1.0); MONOCYTES % (AUTO) 9.2 % (1.7-9.3); NEUTROPHILS # (AUTO) 2.2 K/uL (1.8-7.7); NEUTROPHILS % (AUTO) 52.2 % (42.2-75.2); PLATELET COUNT (AUTO) 223 K/uL (140-450); RED BLOOD CELL COUNT(AUTO) 2.94 MIL/uL (4.20-6.10); RED CELL DISTRIBUTION WIDTH 25.3 % (11.6-13.7); WHITE BLOOD COUNT (AUTO) 4.2 K/uL (4.8-10.8)
--- NOTE | 2017-08-24 00:55 | NUR ---
WENT INTO PT ROOM TO SEE IF HE HAD A URINE SPECIMEN THAT NEEDS TO BE COLLECTED AND PT STATED HE HAD PULLED OUT A TOOTH THAT WAS BOTHERING HIM. HE SAID IT WAS "THE TOOTH THAT WAS STICKING OUT." HE ASKED ME FOR A TISSUE OR SOMETHING SO THAT I CAN THROW IT AWAY IN THE TRASH. I USED A DENTURE CUP FOR SAFE KEEPING AND PLACED A LABEL WITH PT NAME, TIME AND DATE OF INCIDENT. CHARGE NURSE SUSIE IS AWARE. WILL CONTINUE TO MONITOR.
--- NOTE | 2017-08-24 02:00 | NUR ---
PT RESTING IN BED. NO S/S OF RESPIRATORY DISTRESS OR DISCOMFORT NOTED AT THIS TIME. WILL CONTINUE TO MONITOR.
[2017-08-24 03:10] LABS: APPEARANCE,URINE CLOUDY (CLEAR); BILIRUBIN,URINE NEGATIVE (NEGATIVE); BLOOD, URINE 3+ (NEGATIVE); COLOR,URINE RED (YELLOW); LEUKOCYTE ESTERASE ,URINE NEGATIVE (NEGATIVE); NITRITE, URINE NEGATIVE (NEGATIVE); UGLUCOSE NEGATIVE (NEGATIVE)
[2017-08-24 03:36] LABS: BARBITURATE, URINE NEG. ng/ml (NEG <=200); BENZODIAZEPINE, URINE NEG. ng/mL (NEG <=200); CANNABINOID, URINE NEG. ng/mL (NEG <=50); COCAINE, URINE NEG. ng/mL (NEG <=300); OPIATE, URINE NEG. ng/mL (NEG <=2000); PHENCYCLIDINE SCREEN,URINE NEG. ng/mL (NEG <=25)
--- NOTE | 2017-08-24 04:00 | NUR ---
VITAL SIGNS TAKEN AND TOLERATED WELL. PT RESTING IN BED. NO S/S OF RESPIRATORY DISTRESS OR DISCOMFORT NOTED AT THIS TIME. WILL CONTINUE TO MONITOR.
[2017-08-24 04:45] LABS: RBC,URINE TOO NUMEROUS TO COUN /HPF (0-5)
--- NOTE | 2017-08-24 05:20 | NUR ---
PT OUT TO RADIOLOGY WITH ALISSA FOR CT SCAN VIA WHEELCHAIR.
[2017-08-24 06:21] LABS: FOLIC ACID 15.7 ng/mL (>3.0)
[2017-08-24] MEDS: BLOOD GLUCOSE MONITORING 1 DEV DEV FS SCH ×4 (06:22→21:04)
--- NOTE | 2017-08-24 06:22 | NUR ---
BLOOD GLUCOSE 98. PT TOLERATED WELL. NO S/S OF RESPIRATORY DISTRESS OR DISCOMFORT. WILL CONTINUE TO MONITOR.
[2017-08-24 06:35] LABS: HEMATOCRIT 24.5 % (36-52); HEMOGLOBIN 7.9 g/dL (12.0-18.0); MEAN CORPUSCULAR HEMOGLOBIN 25 pg (27-31); MEAN CORPUSCULAR HGB CONC 32 g/dL (33-37); MEAN CORPUSCULAR VOLUME 77.5 fL (80-94); PLATELET COUNT (AUTO) 239 K/uL (140-450); RED BLOOD CELL COUNT(AUTO) 3.16 MIL/uL (4.20-6.10); RED CELL DISTRIBUTION WIDTH 25.1 % (11.6-13.7); WHITE BLOOD COUNT (AUTO) 3.8 K/uL (4.8-10.8)
[2017-08-24 06:57] LABS: ANION GAP 11.7 (8-16); CARBON DIOXIDE 27.4 mmol/L (21-32); CREATININE 0.7 mg/dL (0.7-1.3); POTASSIUM 4.1 mmol/L (3.5-5.1)
[2017-08-24 07:04] LABS: MAGNESIUM 2.1 mg/dL (1.8-2.4); PHOSPHORUS 3.6 mg/dL (2.5-4.9)
--- NOTE | 2017-08-24 07:25 | NUR ---
ENDORSED TO DAY SHIFT NURSE ALISON FOR CONTINUITY OF CARE.
--- NOTE | 2017-08-24 07:26 | NUR ---
RECEIVED REPORT FROM THE COMMERCIAL LOAN COLLECTION OFFICER NURSE AT BEDSIDE FOR CONTINUITY OF CARE. PT IS AWAKE AND ORIENTED. INTRODUCED MYSELF AND UPDATE THE BOARDS. PT IS ON ROOM AIR. PER PT, HAD A FALL AT OTHER FACILITY. PER COMMERCIAL LOAN COLLECTION OFFICER RN, PT HAD A TRANSFUSION, 2 UNITS PRBC. H/H IMPROVING. AMBULATE WITH ASSIST. PLAN FOR A UROLOGY CONSULT. LABS ARE UNREMARKABLE. V/S IS WITHIN NORMAL LIMITS. DENIES PAIN. EDUCATED PT ABOUT FALL RISK, WILL USE URINAL AND IF HE NEEDS TO GET UP, HE WILL REQUEST ASSISTANCE. IV ON L HAND 22G NS AT 60ML. ORDER IS AT 110ML. WILL CHANGE. WILL CONTINUE TO MONITOR PT.
[2017-08-24 07:33] LABS: EOSINOPHILS % (MANUAL) 2 % (0-4); LYMPHOCYTES % (MANUAL) 25 % (20-46); MONOCYTES % (MANUAL) 6 % (5-12)
[2017-08-24 09:11] LABS: T4 (THYROXINE) 6.9 ug/dL (4.5-12.0)
[2017-08-24] MEDS: CARBIDOPA/LEVODOPA 25/100 MG 1 TAB PO SCH ×2 (09:11→21:04)
[2017-08-24] MEDS: LACTOBACILLUS RHAMNOSUS GG 1 EACH CAP PO SCH (09:11)
[2017-08-24] MEDS: QUEtiapine FUMARATE 100 MG TAB PO SCH (09:11)
[2017-08-24] MEDS: FERROUS SULFATE 325 MG TABEC PO SCH (09:11)
[2017-08-24] MEDS: ASCORBIC ACID 500 MG TAB PO SCH (09:12)
--- NOTE | 2017-08-24 09:15 | NUR ---
ADMINISTERED MORNING MEDS. PT TOLERATED WELL. EMPTIED 300ML OF PRINCE URINE. WILL CONTINUE TO MONITOR PT.
--- NOTE | 2017-08-24 12:49 | NUR ---
FINISHED 100% OF LUNCH. EMPTIED 20ML OF PRINCE URINE. ABX INFUSING. NO COMPLAINTS AT THIS TIME. WILL CONTINUE TO MONITOR PT.
--- NOTE | 2017-08-24 14:47 | NUR ---
EXPLAINED TO PT REGARDING THE TRANSURETHRAL RESECTIONS OF BLADDER TUMORS. PT REFUSED TO SIGN CONSENT. HE STATED HE WILL F/U WITH HIS UROLOGIST. WILL NOTIFY DR. REGALADO.
--- NOTE | 2017-08-24 14:59 | NUR ---
PATIENT HAS BEEN SCREENED AND CATEGORIZED MODERATE NUTRITION RISK. PATIENT WILL BE SEEN WITHIN 3-5 DAYS OF ADMISSION. 08/27/17 08/29/[address]
--- NOTE | 2017-08-24 15:01 | NUR ---
Clinical admission reviewed
--- NOTE | 2017-08-24 16:08 | NUR ---
PT IS STATING HE WANTS TO GO AMA. CALLED HIS [facility]. THEY DO HAVE A LINE TENDER FLAKEBOARD BUT IS NOT AVAILABLE UNTIL AFTER 7PM. WILL SEND LINE TENDER FLAKEBOARD HERE TO PICK PT UP WHEN THE LINE TENDER FLAKEBOARD RETURNS. EXPLAINED TO PT TO STAY UNTIL LINE TENDER FLAKEBOARD COMES. PT AGREED AND VERBALIZED UNDERSTANDING. DR REGALADO SPOKE WITH PT, EXPLAINED TO PT THE SEVERITY OF HIS CONDITION. PT VERBALIZED UNDERSTANDING BUT STILL INSISTS ON LEAVING. WILL KEEP MONITORING PT UNTIL PT LEAVES.
--- NOTE | 2017-08-24 16:49 | NUR ---
SPOKE TO THE DIRECTOR OF FACILITY. HE SPOKE WITH PT AND CONVINCED PT TO SIGN AND DO THE PROCEDURE. CONSENT IS SIGNED AND IN THE CHART. WILL KEEP PT NPO UNTIL AFTER PROCEDURE.
--- NOTE | 2017-08-24 16:52 | NUR ---
WILL HOLD INSULIN COVERAGE 2 UNIT OF HUMALOG D/T PT BEING NPO.
--- NOTE | 2017-08-24 18:04 | NUR ---
PT AWAKE AND ORIENTED. TV NOT WORKING. WILL HAVE SOMEONE COME AND LOOK AT IT.
--- NOTE | 2017-08-24 18:36 | NUR ---
DR. FRANCISCO HERE TO SEE PT. PT REFUSED TO DO THE PROCEDURE. CALLED DIRECTOR AND HE SPOKE TO PT AGAIN. OK PER PT. SCHEDULED FOR PROCEDURE TOMORROW MORNING 0830.
--- NOTE | 2017-08-24 19:25 | NUR ---
ENDORSED PT TO THE CONTACT WORKER NURSE AT BEDSIDE FOR CONTINUITY OF CARE. PT IS IN STABLE CONDITION.
--- NOTE | 2017-08-24 19:26 | NUR ---
RECEIVED REPORT FROM DAY SHIFT NURSE JUDITH-RN. PATIENT IS AAOX4, ON ROOM AIR, IV TO THE LEFT HAND 22G. SITE IS CLEAN, DRY, PATENT AND INTACT. NO S/S OF RESPIRATORY DISTRESS OR DISCOMFORT NOTED AT THIS TIME. DISCUSSED PLAN OF CARE AND PT VERBALIZED UNDERSTANDING. UPDATED WHITE BOARD. BED IN LOWEST POSITION, SIDE RAILS UP X2, BED ALARM ON. BED SIDE TABLE AND CALL LIGHT WITHIN REACH. WILL CONTINUE TO MONITOR.
[2017-08-24] MEDS: SIMVASTATIN 20 MG TAB PO SCH (21:04)
--- NOTE | 2017-08-24 21:05 | NUR ---
VITAL SIGNS TAKEN AND SCHEDULED MEDICATION GIVEN. PT TOLERATED WELL. WILL CONTINUE TO MONITOR.
[2017-08-24] MEDS: INSULIN LISPRO SLIDING SCALE 100 UNITS/ML VIAL SUBQ PRN (21:09)
--- NOTE | 2017-08-24 22:57 | NUR ---
PT CONTINUES TO SLEEP. NO S/S OF RESPIRATORY DISTRESS OR DISCOMFORT AT THIS TIME. WILL CONTINUE TO MONITOR.
--- NOTE | 2017-08-25 | NUR ---
REMINDED PT ON BEING NPO STARTING MIDNIGHT. PT VERBALIZED UNDERSTANDING. SIGN POSTED ON ROOM DOOR.
--- NOTE | 2017-08-25 | NUR ---
PT RESTING IN BED. VITAL SIGNS TAKEN AND TOLERATED WELL. NO S/S OF RESPIRATORY DISTRESS OR DISCOMFORT AT THIS TIME. WILL CONTINUE TO MONITOR.
--- NOTE | 2017-08-25 02:18 | NUR ---
PT RESTING IN BED. NO S/S OF RESPIRATORY DISTRESS OR DISCOMFORT. WILL CONTINUE TO MONITOR.
--- NOTE | 2017-08-25 03:35 | NUR ---
PT BED ALARM SOUNDED WHEN PT TRIED TO GET OUT OF BED. HE SAID, "I WANT TO LEAVE RIGHT NOW OUT OF THIS DUMP!" I REMINDED HIM THAT HE WAS IN THE HOSPITAL AND THAT IT WAS 3:30 IN THE MORNING. I TOLD HIM TO GET SOME REST AND THAT WE WOULD TALK ABOUT IT IN THE MORNING. PT SEEMS CONFUSED. HE ALSO ASKED ME IF I KNEW THE MEANING OF "[place]." HE SAID IT WAS "HAVING LIVE CREATURES IN YOUR MOUTH." WILL CONTINUE TO MONITOR.
[2017-08-25 03:50] VITALS: BP 112/66
--- NOTE | 2017-08-25 03:57 | NUR ---
VITAL SIGNS TAKEN AND TOLERATED WELL. PT AWAKE WATCHING TV. NO S/S OF RESPIRATORY DISTRESS OR DISCOMFORT AT THIS TIME. WILL CONTINUE TO MONITOR.
[2017-08-25] MEDS: BLOOD GLUCOSE MONITORING 1 DEV DEV FS SCH ×4 (06:15→21:21)
--- NOTE | 2017-08-25 06:15 | NUR ---
BLOOD GLUCOSE 100. NO INSULIN NEEDED. PT RESTING IN BED WATCHING TV. NO S/S OF RESPIRATORY DISTRESS OR DISCOMFORT. WILL CONTINUE TO MONITOR.
[2017-08-25 06:37] LABS: BASOPHILS # (AUTO) 0.1 K/uL (0.00-0.22); BASOPHILS % (AUTO) 1.3 % (0.0-2.0); EOSINOPHILS % (AUTO) 0.9 % (0.0-4.0); HEMATOCRIT 25.3 % (36-52); HEMOGLOBIN 8.1 g/dL (12.0-18.0); LYMPHOCYTES # (AUTO) 1.6 K/uL (2.0-11.5); LYMPHOCYTES % (AUTO) 38.6 % (20.5-51.1); MEAN CORPUSCULAR HEMOGLOBIN 25 pg (27-31); MEAN CORPUSCULAR HGB CONC 32 g/dL (33-37); MEAN CORPUSCULAR VOLUME 77.5 fL (80-94); MONOCYTES # (AUTO) 0.3 K/uL (0.8-1.0); MONOCYTES % (AUTO) 7.7 % (1.7-9.3); NEUTROPHILS # (AUTO) 2.2 K/uL (1.8-7.7); NEUTROPHILS % (AUTO) 51.5 % (42.2-75.2); PLATELET COUNT (AUTO) 235 K/uL (140-450); RED BLOOD CELL COUNT(AUTO) 3.26 MIL/uL (4.20-6.10); RED CELL DISTRIBUTION WIDTH 26.3 % (11.6-13.7); WHITE BLOOD COUNT (AUTO) 4.2 K/uL (4.8-10.8)
--- NOTE | 2017-08-25 07:11 | NUR ---
ENDORSED PT TO DAY SHIFT NURSE ALISON FOR CONTINUITY OF CARE.
--- NOTE | 2017-08-25 07:12 | NUR ---
RECEIVED REPORT FROM THE MANAGER NEWS NURSE AT BEDSIDE FOR CONTINUITY OF CARE. PT IS AWAKE AND ORIENTED. INTRODUCED MYSELF AND UPDATED THE BOARD. PT IS BEDREST, SKIN INTACT, ON ROOM AIR. NO COMPLAINTS. AWAITING PROCEDURE FOR TODAY. IV ON L HAND 22G AT 110ML INFUSING. FLUID LOW, WILL REPLACE. WILL BE NPO UNTIL AFTER PROCEDURE. WILL CONTINUE TO MONITOR PT.
[2017-08-25 08:00] VITALS: BP 118/80
[2017-08-25] MEDS: FERROUS SULFATE 325 MG TABEC PO SCH (08:13)
[2017-08-25] MEDS: NACL 0.9% 1,000 ML IV SCH ×2 (08:13→21:21)
[2017-08-25] MEDS: QUEtiapine FUMARATE 100 MG TAB PO SCH (08:13)
[2017-08-25] MEDS: LACTOBACILLUS RHAMNOSUS GG 1 EACH CAP PO SCH (08:13)
[2017-08-25] MEDS: ASCORBIC ACID 500 MG TAB PO SCH (08:14)
[2017-08-25] MEDS: CARBIDOPA/LEVODOPA 25/100 MG 1 TAB PO SCH ×2 (08:14→21:21)
--- NOTE | 2017-08-25 08:18 | NUR ---
ADMINISTERED MORNING MEDS WITH VERY LITTLE WATER. PT IS NPO FOR THE PROCEDURE. PT IS READY. JUST AWAITING THE OR CREW. WILL CONTINUE TO MONITOR PT.
[2017-08-25] MEDS ORDERED: LORazepam 2 MG/ML VIAL IM/IVP PRN (09:15)
--- NOTE | 2017-08-25 09:30 | NUR ---
2 O/R NURSES HERE TO TAKE PT FOR PROCEDURE. PT ALL OF THE SUDDEN REFUSED. CALLED THE FACILITY DIRECTOR, HE SPOKE TO PT. COULD NOT CONVINCE PT TO HAVE PROCEDURE. DR FRANCISCO CAME AND SPOKE TO PT. PT REFUSED. WANTED TO GO HOME. 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 REQUESTED PT TO BE SENT TO [facility], [facility] OR [facility]. DR. FRANCISCO, ALONG WITH ANESTHESIOLOGIST SPOKE TO PT AGAIN. AND AGAIN HE REFUSED. SPOKE TO DR. REGALADO REGARDING MATTER. SPOKE TO PT AND CALMED HIM DOWN. PT AGREED TO STAY UNTIL HE IS PLACED AT ANOTHER FACILITY. WILL NOT WALK OUT OF HOSPITAL. PROCEDURE IS NOW CANCELLED. WILL CONTINUE TO MONITOR PT.
--- NOTE | 2017-08-25 11:05 | NUR ---
EMPTIED 550ML OF HEMATURIA. WILL CONTINUE TO MONITOR PT.
[2017-08-25 12:00] VITALS: BP 105/66
[2017-08-25] MEDS: INSULIN LISPRO SLIDING SCALE 100 UNITS/ML VIAL SUBQ PRN (13:02)
--- NOTE | 2017-08-25 13:08 | NUR ---
PT RESTING COMFORTABLY. ABX INFUSING. NO SIGNS OF DISTRESS. NO COMPLAINTS. WILL CONTINUE TO MONITOR PT.
--- NOTE | 2017-08-25 15:21 | NUR ---
PT RESTING COMFORTABLY. NO SIGNS OF DISTRESS. NO COMPLAINTS. WILL CONTINUE TO MONITOR PT.
[2017-08-25 16:39] VITALS: BP 103/68
--- NOTE | 2017-08-25 19:10 | NUR ---
ENDORSED PT TO THE PROJECT SCIENTIST NURSE. PT IS IN STABLE CONDITION.
--- NOTE | 2017-08-25 19:40 | NUR ---
RECEIVED REPORT AT PT BEDSIDE FROM PROPOSAL CONSULTANT, FOR CONTINUITY OF CARE. PATIENT IS A/OX4 ON ROOM AIR. ABLE TO MAKE NEEDS KNOWN, ABLE TO FOLLOW COMMANDS. PT SKIN IS INTACT. PATIENT HAS 22G IV TO LEFT HAND, ASYMPTOMATIC, INTACT, PATENT. RESPIRATIONS EVEN AND UNLABORED. UPDATED BOARD. VITAL SIGNS WITHIN NORMAL LIMITS. PT STABLE, NO SIGNS OF DISTRESS NOTED AT THIS TIME. BED IN LOWEST POSITION, BED ALARM ON. CALL LIGHT WITHIN REACH, WILL CONTINUE TO MONITOR.
[2017-08-25 20:00] VITALS: BP 117/72
[2017-08-25] MEDS: SIMVASTATIN 20 MG TAB PO SCH (21:21)
--- NOTE | 2017-08-25 21:25 | NUR ---
ADMINISTERED SCHEDULED MEDICATIONS, PT TOLERATED WELL. PT STABLE, NO SIGNS OF DISTRESS NOTED AT THIS TIME. BED IN LOWEST POSITION, BED ALARM ON. CALL LIGHT WITHIN REACH, WILL CONTINUE TO MONITOR.
[2017-08-26] VITALS: BP 115/60
--- NOTE | 2017-08-26 | NUR ---
VITAL SIGNS WITHIN NORMAL LIMITS. PT STABLE, NO SIGNS OF DISTRESS NOTED AT THIS TIME. BED IN LOWEST POSITION, BED ALARM ON. CALL LIGHT WITHIN REACH, WILL CONTINUE TO MONITOR.
[2017-08-26 04:00] VITALS: BP 125/79
[2017-08-26] MEDS: BLOOD GLUCOSE MONITORING 1 DEV DEV FS SCH ×2 (06:27→12:22)
[2017-08-26 06:40] LABS: BASOPHILS # (AUTO) 0.1 K/uL (0.00-0.22); BASOPHILS % (AUTO) 1.2 % (0.0-2.0); EOSINOPHILS # (AUTO) 0.1 K/uL (0-0.4); EOSINOPHILS % (AUTO) 2.2 % (0.0-4.0); HEMATOCRIT 26.2 % (36-52); HEMOGLOBIN 8.2 g/dL (12.0-18.0); LYMPHOCYTES # (AUTO) 1.6 K/uL (2.0-11.5); LYMPHOCYTES % (AUTO) 36.8 % (20.5-51.1); MEAN CORPUSCULAR HEMOGLOBIN 25 pg (27-31); MEAN CORPUSCULAR HGB CONC 32 g/dL (33-37); MEAN CORPUSCULAR VOLUME 78.3 fL (80-94); MONOCYTES # (AUTO) 0.3 K/uL (0.8-1.0); MONOCYTES % (AUTO) 6.2 % (1.7-9.3); NEUTROPHILS # (AUTO) 2.3 K/uL (1.8-7.7); NEUTROPHILS % (AUTO) 53.6 % (42.2-75.2); PLATELET COUNT (AUTO) 242 K/uL (140-450); RED BLOOD CELL COUNT(AUTO) 3.34 MIL/uL (4.20-6.10); RED CELL DISTRIBUTION WIDTH 26.8 % (11.6-13.7); WHITE BLOOD COUNT (AUTO) 4.4 K/uL (4.8-10.8)
[2017-08-26] MEDS: NACL 0.9% 1,000 ML IV SCH ×2 (07:19→08:20)
--- NOTE | 2017-08-26 07:20 | NUR ---
ENDORSED PT TO DAY SHIFT RN FOR CONTINUITY OF CARE. PT IN STABLE CONDITION.
--- NOTE | 2017-08-26 07:21 | NUR ---
RECEIVED REPORT FROM OIL PROGRAM COMPLIANCE SPECIALIST NURSE AT BEDSIDE FOR CONTINUITY OF CARE. PATIENT IS A/OX4 ON ROOM AIR. ABLE TO MAKE NEEDS KNOWN, ABLE TO FOLLOW COMMANDS. PT SKIN IS INTACT. PATIENT HAS 22G IV TO LEFT HAND, ASYMPTOMATIC, INTACT, PATENT INFUSING IVF WELL. RESPIRATIONS EVEN AND UNLABORED. PATIENT DENIES PAIN. UPDATED BOARD. VITAL SIGNS WITHIN NORMAL LIMITS. PT STABLE, NO SIGNS OF DISTRESS NOTED AT THIS TIME. PLAN OF CARE DISCUSSED WITH PATIENT. PATIENT VERBALIZED UNDERSTANDING. SAFETY PRECAUTION IN PLACE, BED IN LOWEST POSITION, BED ALARM ON. CALL LIGHT WITHIN REACH, WILL CONTINUE TO MONITOR PATIENT.
[2017-08-26 08:00] VITALS: BP 108/70
[2017-08-26] MEDS: FERROUS SULFATE 325 MG TABEC PO SCH (08:19)
[2017-08-26] MEDS: CARBIDOPA/LEVODOPA 25/100 MG 1 TAB PO SCH (08:19)
[2017-08-26] MEDS: LACTOBACILLUS RHAMNOSUS GG 1 EACH CAP PO SCH (08:19)
[2017-08-26] MEDS: ASCORBIC ACID 500 MG TAB PO SCH (08:19)
--- NOTE | 2017-08-26 08:20 | NUR ---
ADMINISTERED ORDERED MEDICATIONS, PATIENT TOLERATED IT WELL. NO SIGNS OF DISTRESS OR SOB NOTED ON ROOM AIR. PATIENT DENIES PAIN AT THIS TIME. SAFETY PRECAUTION IN PLACE, CALL LIGHT WITHIN REACH, WILL CONTINUE TO MONITOR PATIENT.
[2017-08-26] MEDS ORDERED: QUEtiapine FUMARATE 25 MG TAB PO SCH (09:00)
[2017-08-26] MEDS ORDERED: QUET25TA46 PO (09:08)
--- NOTE | 2017-08-26 10:22 | NUR ---
PATIENT RESTING IN BED WATCHING TV. URINAL EMPTIED OF 450 ML OF RED CLEAR URINE. NO SIGNS OF DISTRESS OR SOB NOTED ON ROOM AIR. PATIENT DENIES PAIN AT THIS TIME. SAFETY PRECAUTION IN PLACE, CALL LIGHT WITHIN REACH, WILL CONTINUE TO MONITOR PATIENT.
--- NOTE | 2017-08-26 11:25 | NUR ---
PATIENT AMBULATED AROUND [facility] ON STEADY GAIT UNASSISTED. PATIENT TOLERATED IT WELL AND DENIED DIZZINESS OR PAIN. PATIENT NOW BACK IN HIS ROOM. VOIDED 20 ML OF LEE RED CLEAR URINE. NO SIGNS OF DISTRESS OR SOB NOTED ON ROOM AIR. PATIENT DENIES PAIN AT THIS TIME. SAFETY PRECAUTION IN PLACE, CALL LIGHT WITHIN REACH, WILL CONTINUE TO MONITOR PATIENT.
[2017-08-26 12:00] VITALS: BP 109/68
--- NOTE | 2017-08-26 12:26 | NUR ---
ADMINISTERED ORDERED MEDICATIONS, PATIENT TOLERATED IT WELL. BLOOD SUGAR 95, NO COVERAGE NEEDED. NO SIGNS OF DISTRESS OR SOB NOTED ON ROOM AIR. PATIENT DENIES PAIN AT THIS TIME. PATIENT VOIDED LEE RED CLEAR URINE IN URINAL, 450 ML. SAFETY PRECAUTION IN PLACE, CALL LIGHT WITHIN REACH, WILL CONTINUE TO MONITOR PATIENT.
--- NOTE | 2017-08-26 12:51 | NUR ---
Managing Member Note: Gurmeet Ray from [facility] , one of their caregivers will come picker box operator patient today at 2pm, RN Aydin made aware.
--- NOTE | 2017-08-26 13:05 | NUR ---
ANN FROM CASE MANAGEMENT CALLED, STATED THAT WORKER FROM PATIENT'S FACILITY WILL COME AT 1400 TO PICK PATIENT UP. RN VERBALIZED UNDERSTANDING.
--- NOTE | 2017-08-26 13:45 | NUR ---
PATIENT'S PSYCHIATRIST DR ROBERTO CAME TO VISIT PATIENT. PATIENT WAS HOSTILE AND TOLD HIM TO "LEAVE ME ALONE", "YOU'RE NOT MY DOCTOR". STILL WAITING ON DISCHARGE ORDER. PATIENT AWARE AND IS RESTING IN BED, NO COMPLAINTS AT THIS TIME. SAFETY PRECAUTION IN PLACE, CALL LIGHT WITHIN REACH. WILL CONTINUE TO MONITOR PATIENT.
--- NOTE | 2017-08-26 14:00 | NUR ---
RYAN FROM PATIENT'S FACILITY ON FLOOR. ELECTRONIC DISCHARGE PLANNING STILL NOT COMPLETE, WAITING ON DR. ODOM. INFORMED PATIENT OF THAT FACT. PATIENT VERBALIZED UNDERSTANDING.
--- NOTE | 2017-08-26 14:10 | NUR ---
DISCHARGE INSTRUCTION AND EDUCATION GIVEN TO PATIENT. PATIENT VERBALIZED UNDERSTANDING. IV REMOVED, IV CATHETER INTACT, MINIMAL BLOOD NOTED. ID BANDS CUT. PATIENT WILL NOW CHANGE INTO HIS OWN CLOTHING IN PREPARATION TO BE DISCHARGE OFF FLOOR.
--- NOTE | 2017-08-26 14:20 | NUR ---
PATIENT AMBULATED ON STEADY GAIT OFF FLOOR WITH RYAN AND RN. PATIENT TOOK ALL HIS BELONGINGS WITH HIM. PATIENT IN STABLE CONDITION.
[2017-08-26] MEDS ORDERED: QUEtiapine FUMARATE 100 MG TAB PO SCH (21:00)
== END 2017-08-26 14:30 | disposition home or self-care (01) | DRG 686 ==
LOC: MED 09:28 → MTU 11:48
PROVIDERS: ADMIT Student in an Organized Health Care Education/Training Program; ATTEND Student in an Organized Health Care Education/Training Program
PROC: 30233P1 Transfusion of Nonautologous Frozen Red Cells into Peripheral Vein, Percutaneous Approach (ICD-10-PCS; principal; 2017-08-23)
DX: C67.9 Malignant neoplasm of bladder, unspecified (principal); N17.0 Acute kidney failure with tubular necrosis; D68.59 Other primary thrombophilia; D62 Acute posthemorrhagic anemia; E11.9 Type 2 diabetes mellitus without complications; I10 Essential (primary) hypertension; E78.5 Hyperlipidemia, unspecified; F17.210 Nicotine dependence, cigarettes, uncomplicated; F20.9 Schizophrenia, unspecified; M19.90 Unspecified osteoarthritis, unspecified site; E78.00 Pure hypercholesterolemia, unspecified; Z53.20 Procedure and treatment not carried out because of patient's decision for unspecified reasons; W19.XXXA Unspecified fall, initial encounter; Y93.89 Activity, other specified; Y92.89 Other specified places as the place of occurrence of the external cause; Y99.8 Other external cause status
CPT/HCPCS: 36415; 70450; 71045; 80048; 80053; 80305; 81001; 82150; 82607; 82728; 82746; 82948; 83036; 83540; 83605; 83690; 83735; 83880; 84100; 84436; 84439; 84443; 84479; 84484; 85025; 85045; 85610; 85730; 86886; 86900; 86901; 86920; 87040; 87081; 87086; 93005; 93880; 93925; 93970; 96360; 99285; J0696; J1815; J7030; J7060; P9016; Q0092

== ENCOUNTER 2018-02-02 13:25 | Inpatient (IN) | payer OTHER ==
[~2018-02-02] VITALS: Ht 175.3 cm; Wt 54.4 kg
[~2018-02-02 13:25] MED LIST changes: +CARB1TAB37 PO; -FERR-20 PO; -FLONAS NS; -LORA10TA19 PO; +QUET25TA46 PO
--- NOTE | 2018-02-02 13:26 | NUR ---
PT BIBA ALS TO BED 7
[2018-02-02 13:30] VITALS: BP 100/64
--- NOTE | 2018-02-02 13:46 | NUR ---
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 AOX4 TO PERSON, PLACE, SITUATION AND TIME.HX : HYPERLIPIDEMIA SCHZIOPHRENIA, IPARKINSON'S DISEASE, ANEMIA. DENIES N/V/D; SKIN IS PINK/WARM/DRY; LUNGS CLEAR BL; PT DENIES ANY FEVER, CP, SOB, OR COUGH AT THIS TIME; PATIENT STATES PAIN OF 5/10 AT THIS TIME. PATIENT POSITIONED FOR COMFORT; HOB ELEVATED; BEDRAILS UP X2; BED DOWN. ER MD MADE AWARE OF PT STATUS.
--- NOTE | 2018-02-02 13:46 | NUR ---
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 AOX4 TO PERSON, PLACE, SITUATION AND TIME.HX--HYPERLIPIDEMIA SCHZIOPHRENIA. DENIES N/V/D; SKIN IS PINK/WARM/DRY; AAOX4 WITH EVEN AND STEADY GAIT; LUNGS CLEAR BL; PT DENIES ANY FEVER, CP, SOB, OR COUGH AT THIS TIME; PATIENT STATES PAIN OF 5/10 AT THIS TIME. PATIENT POSITIONED FOR COMFORT; HOB ELEVATED; BEDRAILS UP X2; BED DOWN. ER MD MADE AWARE OF PT STATUS.
--- NOTE | 2018-02-02 13:46 | NUR ---
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 AOX4 TO PERSON, PLACE, SITUATION AND TIME.HX--HYPERLIPIDEMIA SCHZIOPHRENIA. DENIES N/V/D; SKIN IS PINK/WARM/DRY; LUNGS CLEAR BL; PT DENIES ANY FEVER, CP, SOB, OR COUGH AT THIS TIME; PATIENT STATES PAIN OF 5/10 AT THIS TIME. PATIENT POSITIONED FOR COMFORT; HOB ELEVATED; BEDRAILS UP X2; BED DOWN. ER MADE AWARE OF PT STATUS.
--- NOTE | 2018-02-02 13:55 | NUR ---
Patient being evaluated by physician at bedside.
[2018-02-02] MEDS ORDERED: NACL 0.9% 1,000 ML IV ONE (14:10)
--- NOTE | 2018-02-02 14:12 | NUR ---
PT TAKEN TO CT VIA [facility]
--- NOTE | 2018-02-02 14:20 | NUR ---
PT RETURNED FROM CT
[2018-02-02 14:39] LABS: BASOPHILS # (AUTO) 0.1 K/uL (0.00-0.22); BASOPHILS % (AUTO) 1.3 % (0.0-2.0); EOSINOPHILS % (AUTO) 0.3 % (0.0-4.0); HEMATOCRIT 23.1 % (36-52); LYMPHOCYTES # (AUTO) 0.4 K/uL (2.0-11.5); LYMPHOCYTES % (AUTO) 9.3 % (20.5-51.1); MEAN CORPUSCULAR HEMOGLOBIN 27 pg (27-31); MEAN CORPUSCULAR HGB CONC 30 g/dL (33-37); MEAN CORPUSCULAR VOLUME 87.7 fL (80-94); MONOCYTES # (AUTO) 0.2 K/uL (0.8-1.0); MONOCYTES % (AUTO) 5.5 % (1.7-9.3); NEUTROPHILS # (AUTO) 3.6 K/uL (1.8-7.7); NEUTROPHILS % (AUTO) 83.6 % (42.2-75.2); PLATELET COUNT (AUTO) 299 K/uL (140-450); RED BLOOD CELL COUNT(AUTO) 2.63 MIL/uL (4.20-6.10); RED CELL DISTRIBUTION WIDTH 18.7 % (11.6-13.7); WHITE BLOOD COUNT (AUTO) 4.3 K/uL (4.8-10.8)
--- NOTE | 2018-02-02 14:50 | NUR ---
LUNCH PROVIDED TO TYRON PT, RN JUANJOSE AT [facility]
--- NOTE | 2018-02-02 14:51 | NUR ---
PT CAN'T PROVIDE URINE AT THIS TIME. NOTIFIED DR farrell.
[2018-02-02] MEDS ORDERED: NACL 0.9% 1,000 ML IV SCH (14:57)
[2018-02-02] MEDS ORDERED: MORPHINE SULFATE 4 MG/ML SYR IVP PRN (15:00)
[2018-02-02] MEDS ORDERED: LORazepam 2 MG/ML VIAL IM/IVP PRN (15:00)
[2018-02-02] MEDS ORDERED: ONDANSETRON 4 MG/2 ML VIAL IM/IVP PRN (15:00)
[2018-02-02] MEDS ORDERED: ZOLPIDEM 5 MG TAB PO PRN (15:00)
[2018-02-02] MEDS ORDERED: HYDROcodone/APAP 5/325 MG 1 TAB TAB PO PRN (15:00)
[2018-02-02] MEDS ORDERED: ACETAMINOPHEN 325 MG TAB PO PRN (15:00)
[2018-02-02 15:01] LABS: ANION GAP 8.1 (8-16); ASPARTATE AMINOTRANSFERASE 2 U/L (15-37); CARBON DIOXIDE 27.9 mmol/L (21-32); CHLORIDE 109 mmol/L (98-107); CREATININE 0.9 mg/dL (0.7-1.3); GLUCOSE 135 mg/dL (74-106); SODIUM SERUM 141 mmol/L (136-145); TOTAL BILIRUBIN 0.2 mg/dL (0.0-1.0); UREA NITROGEN, BLOOD 20 mg/dL (7-18)
[2018-02-02] MEDS ORDERED: INSULIN LISPRO SLIDING SCALE 100 UNITS/ML VIAL SUBQ PRN (15:05)
[2018-02-02] MEDS ORDERED: DEXTROSE 50% 50 ML SYR IVP PRN (15:05)
[2018-02-02 15:08] LABS: SALICYLATE < 2.8 mg/dL (2.8-20.0)
--- NOTE | 2018-02-02 15:27 | NUR ---
LAB AT BEDSIDE.
--- NOTE | 2018-02-02 15:29 | NUR ---
US AT BEDSIDE.
--- NOTE | 2018-02-02 15:55 | NUR ---
PT TAKEN TO FLOOR BY RICHIE SOW AND KACY LOERA
[2018-02-02 16:05] VITALS: BP 89/54
--- NOTE | 2018-02-02 16:05 | NUR ---
Patient will be admitted to care of DR MARIN. Admited to TELE. Will go to room 121B. Belongings list completed. Report to SUDHIR QUIROZ.
--- NOTE | 2018-02-02 16:05 | NUR ---
PATIENT ARRIVED ON UNIT FROM ER. ABLE TO AMBULATE FROM ER BED TO [facility] BED WITH ASSISTANCE. NO DISTRESS NOTED AT THIS TIME. AAOX2, CALM, COOPERATIVE, SKIN COLOR APPROPRIATE TO ETHNICITY, WARM TO TOUCH. HAS LEFT ANKLE OPEN BLISTER NOTED. IV SITE INTACT, PATENT, AND STARTED ON IVF PER MD ORDERS. ABDOMEN SOFT, NON-DISTENDED. LUNGS CTA ON ALL LOBES. REVIEWED PLAN OF CARE WITH PATIENT. PATIENT VERBALIZED UNDERSTANDING. SAFETY MEASURES IN PLACE, CALL LIGHT WITHIN REACH. WILL CONTINUE TO MONITOR.
[2018-02-02 16:09] LABS: PROTHROMBIN TIME 10.4 secs (10.8-13.4)
[2018-02-02 16:15] LABS: CHOL/HDL RATIO 1.9 (1-4.5); MAGNESIUM 2.2 mg/dL (1.8-2.4); PHOSPHORUS 2.6 mg/dL (2.5-4.9); THYROID STIMULATING HORMONE 0.55 uIU/mL (0.34-3.74)
[2018-02-02] MEDS: BLOOD GLUCOSE MONITORING 1 DEV DEV FS SCH ×2 (16:30→21:50)
[2018-02-02] MEDS ORDERED: MECLIZINE 25 MG TAB PO PRN (17:25)
[2018-02-02] MEDS ORDERED: SODIUM FERRIC GLUCONATE 125 MG in NACL 0.9% 100 ML IV SCH ×4 (17:30)
--- NOTE | 2018-02-02 18:00 | NUR ---
INFORMED ON HEMATURIA ON URINE. AWARE. STILL FOR OCCULT BLOOD IN THE STOOL, NO BM NOTED YET. DR. LAGUERRE. WILL CONTINUE TO MONITOR.
--- NOTE | 2018-02-02 18:20 | NUR ---
1 UNIT PRBC STARTED. WILL CONTINUE TO MONITOR PER PROTOCOL.
--- NOTE | 2018-02-02 19:35 | NUR ---
GAVE REPORT TO STONE SETTER APPRENTICE NURSE FOR CONTINUITY OF CARE. PATIENT IN STABLE CONDITION.
--- NOTE | 2018-02-02 19:36 | NUR ---
RECEIVED FROM AM NURSE BEDSIDE REPORT. TELE PT.ABLE TO AMBULATE FROM ER BED TO MST BED WITH ASSISTANCE. NO DISTRESS NOTED AT THIS TIME. AAOX2, CALM, COOPERATIVE, SKIN COLOR APPROPRIATE TO ETHNICITY, WARM TO TOUCH.ABDOMEN SOFT, NON-DISTENDED. HAS LEFT ANKLE OPEN BLISTER NOTED. IV SITE INTACT ON L FA G 18 WIT 1 UNIT OF BLOOD INFUSING WELL WITH NS 500 CC. PATENT. SAFETY MEASURES IN PLACE, CALL LIGHT WITHIN REACH. URINE COLLECTED BY AM SHIFT NURSE AND SENT TO LAB. HEMATURIA NOTED.WILL CONTINUE TO MONITOR.
[2018-02-02 20:00] VITALS: BP 89/54
[2018-02-02 20:17] LABS: APPEARANCE,URINE BLOODY (CLEAR); BLOOD, URINE NEGATIVE (NEGATIVE); COLOR,URINE BLOODY (YELLOW); UGLUCOSE NEGATIVE (NEGATIVE)
[2018-02-02 20:18] LABS: BILIRUBIN,URINE NEGATIVE (NEGATIVE); LEUKOCYTE ESTERASE ,URINE NEGATIVE (NEGATIVE); NITRITE, URINE NEGATIVE (NEGATIVE)
[2018-02-02 20:23] LABS: RBC,URINE TOO NUMEROUS TO COUN /HPF (0-5); WBC,URINE 0-5 (RARE) /HPF (0-5)
[2018-02-02 20:37] LABS: BARBITURATE, URINE NEG. ng/ml (NEG <=200); BENZODIAZEPINE, URINE NEG. ng/mL (NEG <=200); CANNABINOID, URINE NEG. ng/mL (NEG <=50); COCAINE, URINE NEG. ng/mL (NEG <=300); OPIATE, URINE NEG. ng/mL (NEG <=2000); PHENCYCLIDINE SCREEN,URINE NEG. ng/mL (NEG <=25)
--- NOTE | 2018-02-02 21:00 | NUR ---
1 UNIT OF PRBC DONE. WITH NO SIGNS OF BLOOD REACTION. LAB WAS AT BEDSIDE. WILL CONTINUE TO MONITOR FOR ADVERSE REACTIONS
[2018-02-02] MEDS: CARBIDOPA/LEVODOPA 25/100 MG 1 TAB PO SCH (21:41)
[2018-02-02] MEDS: ATORVASTATIN 20 MG TAB PO SCH (21:41)
[2018-02-02] MEDS ORDERED: SODIUM FERRIC GLUCONATE 12.5 MG/ML AMP IV ONE (22:20)
[2018-02-02 23:20] LABS: BASOPHILS # (AUTO) 0.1 K/uL (0.00-0.22); BASOPHILS % (AUTO) 1.5 % (0.0-2.0); EOSINOPHILS # (AUTO) 0.1 K/uL (0-0.4); EOSINOPHILS % (AUTO) 1.3 % (0.0-4.0); HEMATOCRIT 24.9 % (36-52); HEMOGLOBIN 7.7 g/dL (12.0-18.0); LYMPHOCYTES # (AUTO) 1.4 K/uL (2.0-11.5); LYMPHOCYTES % (AUTO) 26.2 % (20.5-51.1); MEAN CORPUSCULAR HEMOGLOBIN 27 pg (27-31); MEAN CORPUSCULAR HGB CONC 31 g/dL (33-37); MEAN CORPUSCULAR VOLUME 88.7 fL (80-94); MONOCYTES # (AUTO) 0.2 K/uL (0.8-1.0); MONOCYTES % (AUTO) 4.7 % (1.7-9.3); NEUTROPHILS # (AUTO) 3.5 K/uL (1.8-7.7); NEUTROPHILS % (AUTO) 66.3 % (42.2-75.2); PLATELET COUNT (AUTO) 275 K/uL (140-450); RED CELL DISTRIBUTION WIDTH 17.3 % (11.6-13.7); WHITE BLOOD COUNT (AUTO) 5.2 K/uL (4.8-10.8)
[2018-02-03] VITALS (7 sets, daily range): BP systolic 86–122; BP diastolic 50–68
--- NOTE | 2018-02-03 02:00 | NUR ---
PT SLEEPING COMFORTABLY. PT NO SIGNS AND SYMPTOMS OF DISTRESS.BED AT LOWEST POSITION. CALL LIGHT WITHIN EASY REACH. WILL CONTINUE TO MONITOR
--- NOTE | 2018-02-03 05:39 | NUR ---
BP DECREASED TO 130/80. WILL CONTINUE TO MONITOR Addendum: 02/03/18 at 0615 by Geraldine Anderson RN WRONG ENTRY
[2018-02-03 06:56] LABS: EOSINOPHILS # (AUTO) 0.1 K/uL (0-0.4); EOSINOPHILS % (AUTO) 1.3 % (0.0-4.0); HEMATOCRIT 26.1 % (36-52); HEMOGLOBIN 8.3 g/dL (12.0-18.0); LYMPHOCYTES % (AUTO) 19.9 % (20.5-51.1); MEAN CORPUSCULAR HEMOGLOBIN 28 pg (27-31); MEAN CORPUSCULAR HGB CONC 32 g/dL (33-37); MEAN CORPUSCULAR VOLUME 87.7 fL (80-94); MONOCYTES # (AUTO) 0.4 K/uL (0.8-1.0); MONOCYTES % (AUTO) 7.6 % (1.7-9.3); NEUTROPHILS # (AUTO) 3.6 K/uL (1.8-7.7); NEUTROPHILS % (AUTO) 70.2 % (42.2-75.2); PLATELET COUNT (AUTO) 272 K/uL (140-450); RED BLOOD CELL COUNT(AUTO) 2.98 MIL/uL (4.20-6.10); RED CELL DISTRIBUTION WIDTH 17.9 % (11.6-13.7); WHITE BLOOD COUNT (AUTO) 5.1 K/uL (4.8-10.8)
[2018-02-03 06:58] LABS: ANION GAP 9.3 (8-16); CARBON DIOXIDE 28.1 mmol/L (21-32); CHLORIDE 108 mmol/L (98-107); CREATININE 0.7 mg/dL (0.7-1.3); GLUCOSE 114 mg/dL (74-106); POTASSIUM 4.4 mmol/L (3.5-5.1); SODIUM SERUM 141 mmol/L (136-145); UREA NITROGEN, BLOOD 13 mg/dL (7-18)
[2018-02-03 07:18] LABS: FOLIC ACID 13.9 ng/mL (>3.0)
--- NOTE | 2018-02-03 07:28 | NUR ---
GIVEN BEDSIDE REPORT TO AM SHIFT NURSE. PT IN STABLE CONDITION.STILL WITH HEMATURIA. FOR OCCULT STOOL EXAM.
--- NOTE | 2018-02-03 07:30 | NUR ---
RECEIVED BEDSIDE REPORT FROM PM SHIFT NURSE ELVER. PT LYING AWAKE IN BED WITH URINAL IN KATHIE AREA. OFFERED ASSISTANCE WITH TASK, PT REFUSED & STATES HE'S OK. STATES "I'M TRYING TO PEE." CALL LIGHT WITHIN REACH. WILL CONTINUE TO MONITOR.
[2018-02-03] MEDS: BLOOD GLUCOSE MONITORING 1 DEV DEV FS SCH ×4 (07:47→20:28)
--- NOTE | 2018-02-03 08:23 | NUR ---
PATIENT HAS BEEN SCREENED AND CATEGORIZED HIGH NUTRITION RISK. PATIENT WILL BE SEEN WITHIN 1-2 DAYS OF ADMISSION. 02/03/18-02/04/[address]
--- NOTE | 2018-02-03 09:05 | NUR ---
PT SITTING UP IN BED EATING BREAKFAST. NO C/O PAIN OR DISCOMFORT. RESPIRATIONS EVEN & UNLABORED. URINAL WITH BRIGHT RED URINE, EMPTIED, CLEANED, & PLACED WITHIN REACH. CALL LIGHT WITHIN REACH.
[2018-02-03] MEDS: ASCORBIC ACID 500 MG TAB PO SCH (09:30)
[2018-02-03] MEDS: QUEtiapine FUMARATE 100 MG TAB PO SCH (09:31)
[2018-02-03] MEDS: CALCIUM CARB/VIT-D 500 MG/200 IU 1 TAB PO SCH (09:31)
[2018-02-03] MEDS: CARBIDOPA/LEVODOPA 25/100 MG 1 TAB PO SCH ×2 (09:31→20:32)
[2018-02-03] MEDS: chlordiazePOXIDE 25 MG CAP PO SCH ×3 (09:31→17:08)
[2018-02-03] MEDS: QUEtiapine FUMARATE 25 MG TAB PO SCH (09:31)
--- NOTE | 2018-02-03 11:04 | NUR ---
PT SITTING UP IN BED, WATCHING TV. NO C/O PAIN OR DISCOMFORT, RESPIRATIONS EVEN & UNLABORED. OFFERED ASSISTANCE FOR TOILETING. PT REFUSED AT THIS TIME & STATES HE IS OK. BED IN LOWEST POSITION WITH ALARM ON. CALL LIGHT WITHIN REACH.
[2018-02-03] MEDS: DOCUSATE SODIUM 100 MG GELCAP PO PRN (12:35)
[2018-02-03] MEDS: FERROUS SULFATE 325 MG TABEC PO SCH (12:35)
--- NOTE | 2018-02-03 13:10 | NUR ---
DR ISRAEL AT BEDSIDE ASSESSING PT.
--- NOTE | 2018-02-03 14:17 | NUR ---
SPOKE TO STATION COOK, STATES PT NEED BE NPO x4H PRIOR TO CT SCAN OF ABD/PELV. PT NOTIFIED & VERBALIZED UNDERSTANDING.
--- NOTE | 2018-02-03 14:17 | NUR ---
02/03/18 RD INITIAL ASSESSMENT COMPLETED PLEASE REFER TO NUTRITION ASSESSMENT UNDER CARE ACTIVITY FOR ESTIMATED NUTRITIONAL NEEDS. 1. CONTINUE REGULAR DIET TOLERATED 2. IF PO INTAKE <50% RECOMMEND ENSURE QD 3. RD TO FOLLOW-UP 3-5 DAYS, MODERATE RISK OSEI TOUSSAINT, RD
--- NOTE | 2018-02-03 15:55 | NUR ---
OBTAINED BP 86/50 P 81. PT LYING IN SEMIFOWLERS IN BED, AAOx4, VERBALLY RESPONSIVE, DENIES ANY DISCOMFORT. DR PAZ NOTIFIED, ORDERED TO AMB PT AROUND UNIT THEN RECHECK. PT AMBULATED AROUND UNIT 1LAP WITH STEADY GAIT. NO C/O DIZZINESS OR LIGHTHEADEDNESS. NO SIGNS OF DISTRESS. AMB BACK TO BED IN SITTING POSITION. OBTAINED BP OF 85/[address] PAZ NOTIFIED. PT LAID BACK DOWN IN BED, DENIES ANY DISCOMFORT. RESPIRATIONS EVEN & UNLABORED. CALL LIGHT WITHIN REACH.
[2018-02-03] MEDS ORDERED: NACL 0.9% 250 ML IV ONE (16:10)
--- NOTE | 2018-02-03 16:13 | NUR ---
NS 250ML BOLUS INITIATED. PT LYING IN [place] POSITION. PT AAOx4, DENIES ANY PAIN OR DISCOMFORT. RESPIRATIONS EVEN & UNLABORED. CALL LIGHT WITHIN REACH.
--- NOTE | 2018-02-03 17:13 | NUR ---
PT LYING IN [place] POSITION. PT AAOx4 DENIES ANY DIZZINESS OR DISCOMFORT. NS 250ML COMPLETED. REPOSITIONED TO SUPINE. NO SIGNS OF DISTRESS. CALL LIGHT WITHIN REACH. WILL CONTINUE TO MONITOR. Addendum: 02/03/18 at 1748 by Aminata Cerna RN Amended: Links added.
--- NOTE | 2018-02-03 18:40 | NUR ---
LEFT FOR CT SCAN AT THIS TIME.
--- NOTE | 2018-02-03 19:15 | NUR ---
CAME BACK FROM CT. PT AMBULATED FROM W/C TO BED WITH STEADY GAIT. NO C/O PAIN. CALL LIGHT WIHTIN REACH.
--- NOTE | 2018-02-03 19:40 | NUR ---
REPORT GIVEN TO PM SHIFT NURSE ELVER.
--- NOTE | 2018-02-03 19:41 | NUR ---
RECEIVED BEDSIDE REPORT FROM AM NURSE. PT LYING IN BED AND STATES HE'S OK. REVIEWED POC WIT PT. VERBALIZED UNDERSTANDING. CALL LIGHT WITHIN REACH. WILL CONTINUE TO MONITOR.
--- NOTE | 2018-02-03 20:08 | NUR ---
PLS AMEND/DISREGARD TELE 2000 TAKEN, NEW READING TAKEN AT 2007: 68 BPM SR/PEAKED ELEVATED T.
[2018-02-03] MEDS: ATORVASTATIN 20 MG TAB PO SCH (20:32)
--- NOTE | 2018-02-03 21:00 | NUR ---
PT LYING IN BED STATES HE'S FEELING OK STILL WITH BP 97/69. AWARE OF LOW BP. HEMATURIA STILL NOTED
[2018-02-04] VITALS (7 sets, daily range): BP systolic 86–98; BP diastolic 47–65
[2018-02-04] MEDS: NACL 0.9% 1,000 ML IV SCH ×2 (02:10→16:31)
--- NOTE | 2018-02-04 02:21 | NUR ---
FREQUENT ROUNDING DONE. PT SLEEPING. NO RESPIRATORY DISTRESS NOTED. NO DIZZINESS NOTED.
[2018-02-04 07:02] LABS: BASOPHILS % (AUTO) 0.9 % (0.0-2.0); EOSINOPHILS # (AUTO) 0.1 K/uL (0-0.4); EOSINOPHILS % (AUTO) 2.1 % (0.0-4.0); HEMATOCRIT 28.1 % (36-52); HEMOGLOBIN 8.7 g/dL (12.0-18.0); LYMPHOCYTES # (AUTO) 0.7 K/uL (2.0-11.5); LYMPHOCYTES % (AUTO) 19.3 % (20.5-51.1); MEAN CORPUSCULAR HEMOGLOBIN 27 pg (27-31); MEAN CORPUSCULAR HGB CONC 31 g/dL (33-37); MEAN CORPUSCULAR VOLUME 88.4 fL (80-94); MONOCYTES # (AUTO) 0.3 K/uL (0.8-1.0); MONOCYTES % (AUTO) 6.5 % (1.7-9.3); NEUTROPHILS # (AUTO) 2.8 K/uL (1.8-7.7); NEUTROPHILS % (AUTO) 71.2 % (42.2-75.2); PLATELET COUNT (AUTO) 273 K/uL (140-450); RED BLOOD CELL COUNT(AUTO) 3.17 MIL/uL (4.20-6.10); WHITE BLOOD COUNT (AUTO) 3.9 K/uL (4.8-10.8)
--- NOTE | 2018-02-04 07:15 | NUR ---
REPORT RECEIVED FROM PM SHIFT NURSE. PT AWAKE IN BED, VERBALLY RESPONSIVE, NO C/O PAIN/DISCOMFORT. CALL LIGHT WITHIN REACH.
--- NOTE | 2018-02-04 07:23 | NUR ---
ENDORSED REPORT TO AM SHIFT RN. PT IN STABLE CONDITION
[2018-02-04] MEDS: BLOOD GLUCOSE MONITORING 1 DEV DEV FS SCH ×4 (07:43→20:34)
[2018-02-04 08:45] LABS: ANION GAP 9.7 (8-16); CARBON DIOXIDE 29.3 mmol/L (21-32); CHLORIDE 109 mmol/L (98-107); CREATININE 0.8 mg/dL (0.7-1.3); GLUCOSE 99 mg/dL (74-106); SODIUM SERUM 144 mmol/L (136-145); UREA NITROGEN, BLOOD 8 mg/dL (7-18)
[2018-02-04] MEDS: CALCIUM CARB/VIT-D 500 MG/200 IU 1 TAB PO SCH (08:49)
[2018-02-04] MEDS: QUEtiapine FUMARATE 100 MG TAB PO SCH (08:49)
[2018-02-04] MEDS: QUEtiapine FUMARATE 25 MG TAB PO SCH (08:49)
[2018-02-04] MEDS: CARBIDOPA/LEVODOPA 25/100 MG 1 TAB PO SCH ×2 (08:49→20:31)
[2018-02-04] MEDS: chlordiazePOXIDE 25 MG CAP PO SCH ×3 (08:49→16:31)
[2018-02-04] MEDS: ASCORBIC ACID 500 MG TAB PO SCH (08:50)
--- NOTE | 2018-02-04 08:58 | NUR ---
ZOFRAN GIVEN FOR NAUSEA WITH X1 EPISODE OF SMALL AMT EMESIS, POST MORPHINE ADMINISTRATION. ICE CHIPS PROVIDED FOR COMFORT. ADVISED BEDREST, PT VERBALIZED UNDERSTANDING. CALL LIGHT WITHIN REACH. AT BEDSIDE. Addendum: 02/04/18 at 1047 by Aminata Cerna RN WRONG PT CHARTED. PLS OMIT PREVIOUS NOTE.
--- NOTE | 2018-02-04 09:10 | NUR ---
PT LYING AWAKE IN BED, WATCHING TV. NO C/O PAIN OR DISCOMFORT. URINAL WITH MOD HEMATURIA. URINAL EMPTIED, CLEANED, & PLACED WITHIN REACH. LEFT FA IV INTACT & ASYMPTOMATIC. CALL LIGHT WITHIN REACH.
--- NOTE | 2018-02-04 11:30 | NUR ---
OBTAINED VITAL SIGNS AT THIS TIME WITH BP 86/56. PT IS LYING SUPINE IN BED, AAOx4, ASYMPTOMATIC, NO C/O DIZZINESS OR DISCOMFORT. RESPIRATIONS EVEN & UNLABORED. DR WING NOTIFIED.
[2018-02-04] MEDS ORDERED: NACL 0.9% 250 ML IV ONE (11:55)
--- NOTE | 2018-02-04 12:00 | NUR ---
Marine Mechanic Notes: These grant writer attempted to meet with patient for a screen, to discuss and gather additional collateral information. Patient was sleepy and refused to provide any information at the time. Stated "I do not want to talk" These grant writer contact [facility] to talk to Monica Murphy (Facility Admin). I spoke to James (Home staff) who stated that Monica was not available until Tuesday and that he was unable to provide any patient information to these grant writer. James However; stated that [employer] Yari should be available to contact and provide additional patient information needed. I thanked James for his information and ended the call.
--- NOTE | 2018-02-04 12:15 | NUR ---
DR ISRAEL AT BEDSIDE ASSESSING PT.
[2018-02-04] MEDS: FERROUS SULFATE 325 MG TABEC PO SCH (12:16)
[2018-02-04] MEDS: DOCUSATE SODIUM 100 MG GELCAP PO PRN (12:16)
--- NOTE | 2018-02-04 12:52 | NUR ---
REASSESSED BP AT THIS TIME. PT IS AWAKE, ALERT, VERBALLY RESPONSIVE. NO C/O DIZZINESS OR DISCOMFORT. CALL LIGHT WITHIN REACH. Addendum: 02/04/18 at 1253 by Aminata Cerna RN Amended: Links added.
--- NOTE | 2018-02-04 14:19 | NUR ---
PT IN BED, AWAKE, VERBALLY RESPONSIVE. RESPIRATIONS EVEN & UNLABORED. NO C/O PAIN/DISCOMFORT. DENIES ANY DIZZINESS OR LIGHTHEADEDNESS. CALL LIGHT WITHIN REACH. WILL CONT TO MONITOR.
--- NOTE | 2018-02-04 16:02 | NUR ---
DR. WING ASKED TO FAX INFORMATION TO PT'S INSURANCE ([facility]) SO THEY CAN TRANSFER PT TO [facility]. 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 LEFT A VOICEMAIL MESSAGE TO [facility] DIRECT: [phone]/ [phone]. INFORMATIONS NOT FAXED YET UNTIL WE CAN GET HOLD OF THE INSURANCE REP AND WHERE TO FAX IT TO.
--- NOTE | 2018-02-04 16:22 | NUR ---
ATTEMPTED TO CALL [facility] ([employer]) # [phone]/ , STATED OFFICE IS CLOSED, OFC HOURS IS BETWEEN TUESDAY -TUESDAY.
--- NOTE | 2018-02-04 17:27 | NUR ---
PER DR. WING, DR. BECKWITH WILL ACCEPT PT IF THERE IS A BED AVAILABLE. CALLED [facility] CLERK AND SPOKE WITH CRYSTAL, PT'S INFO GIVEN , FACE SHEET FAXED TO [phone] REQUESTED BY CRYSTAL. FAX CONFIRMATION ATTACHED TO PT'S CHART.
--- NOTE | 2018-02-04 18:06 | NUR ---
PT SITTING UP IN BED, EATING DINNER. NO C/O PAIN OR DISCOMFORT. RESPIRATIONS EVEN & UNLABORED. URINAL WITH 400ML TEA-COLORED URINE. URINAL EMPTIED, CLEANED, & PLACED WITHIN REACH. WILL CONTINUE TO MONITOR.
--- NOTE | 2018-02-04 19:15 | NUR ---
RECEIVED A CALL FROM DR. ISRAEL, ASKING WHAT IS THE STATUS OF PT'S TRANSFER. INFORMED DR. ISRAEL THAT WHERE ARE WAITING FOR [facility] CRYSTAL TO CALL US BACK. DR. ISRAEL STATED THAT PT DOES NOT NEED AUTHORIZATION BECAUSE PT'S PRIMARY INSURANCE IS [employer] AND HE HAS A CONTRACT FOR THEM.
--- NOTE | 2018-02-04 19:25 | NUR ---
REPORT GIVEN TO PM SHIFT NURSE JULIO.
--- NOTE | 2018-02-04 19:26 | NUR ---
RECEIVED REPORT FROM DAYSHIFT NURSE AT BEDSIDE FOR CONTINUITY OF CARE. PT AAOX3. PT IV NOTED LFA 18G NS 60ML/HR. NO SOB NO S/S OF DISTRESS ON RA. PT FALL RISK BUT AMBULATE TO BATHROOM BY HIMSELF. BED LOWERED CALL LIGHT WITHIN REACH WILL CONTINUE TO MONITOR.
--- NOTE | 2018-02-04 19:52 | NUR ---
MADE A FOLLOW UP CALL TO [facility] GROUND HOST/HOSTESS CRYSTAL ([phone]), NO BEDS AVAILABLE AT THIS TIME. CRYSTAL STATED SHE RECEIVED THE PT'S FACE SHEET AND WILL GIVE US A CALL IF THEY ACCEPT THE PATIENT OR NOT. PER CRYSTAL, THEY ARE AWARE THAT PT'S PRIMARY INSURANCE IS [employer], BUT THEY HAVE TO RUN PT'S INSURANCE THEMSELVES AND WILL GIVE US A CALL. PAMELA-POSTMASTER RELIEF NURSE MADE MADE AWARE.
[2018-02-04] MEDS: ATORVASTATIN 20 MG TAB PO SCH (20:31)
--- NOTE | 2018-02-04 21:00 | NUR ---
PT BP LOW AT 93/47 HR 107. SPOKE TO RESIDENT KORI, HE STATED LONG IS MAP IS OVER 60< ITS FINE. MNZOILAM.
[2018-02-05] VITALS: BP 90/64
--- NOTE | 2018-02-05 | NUR ---
PT SLEEPING NO SOB NO S/S OF DISTRESS ON RA. WILL CONTINUE TO MONITOR.
[2018-02-05 04:00] VITALS: BP 95/57
[2018-02-05] MEDS: BLOOD GLUCOSE MONITORING 1 DEV DEV FS SCH ×4 (05:10→20:07)
[2018-02-05 07:15] LABS: BASOPHILS % (AUTO) 0.9 % (0.0-2.0); EOSINOPHILS # (AUTO) 0.1 K/uL (0-0.4); EOSINOPHILS % (AUTO) 2.1 % (0.0-4.0); HEMATOCRIT 28.7 % (36-52); HEMOGLOBIN 8.8 g/dL (12.0-18.0); LYMPHOCYTES # (AUTO) 0.8 K/uL (2.0-11.5); LYMPHOCYTES % (AUTO) 21.1 % (20.5-51.1); MEAN CORPUSCULAR HEMOGLOBIN 27 pg (27-31); MEAN CORPUSCULAR HGB CONC 31 g/dL (33-37); MEAN CORPUSCULAR VOLUME 89.2 fL (80-94); MONOCYTES # (AUTO) 0.3 K/uL (0.8-1.0); MONOCYTES % (AUTO) 7.6 % (1.7-9.3); NEUTROPHILS # (AUTO) 2.6 K/uL (1.8-7.7); NEUTROPHILS % (AUTO) 68.3 % (42.2-75.2); PLATELET COUNT (AUTO) 265 K/uL (140-450); RED BLOOD CELL COUNT(AUTO) 3.22 MIL/uL (4.20-6.10); RED CELL DISTRIBUTION WIDTH 17.8 % (11.6-13.7); WHITE BLOOD COUNT (AUTO) 3.9 K/uL (4.8-10.8)
--- NOTE | 2018-02-05 07:15 | NUR ---
ENDORSED REPORT TO DAYSORFT NURSE FOR CONTINUITY OF CARE.
--- NOTE | 2018-02-05 07:16 | NUR ---
RECEIVED REPORT FROM PM SHIFT NURSE. PT AWAKE IN BED, ASKING FOR BREAKFAST. INFORMED PT THAT BREAKFAST WILL BE SERVED IN A FEW MINUTES. PT DENIES ANY PAIN OR DISCOMFORT. URINAL AT BEDSIDE WITH BRIGHT RED URINE. URINAL EMPTIED, CLEANED, & PLACED WITHIN REACH. CALL LIGHT WITHIN REACH.
[2018-02-05 07:24] LABS: ALBUMIN 2.8 g/dL (3.4-5.0); ANION GAP 9.8 (8-16); ASPARTATE AMINOTRANSFERASE 4 U/L (15-37); CHLORIDE 107 mmol/L (98-107); CREATININE 0.8 mg/dL (0.7-1.3); GLUCOSE 104 mg/dL (74-106); MAGNESIUM 2.1 mg/dL (1.8-2.4); PHOSPHORUS 4.5 mg/dL (2.5-4.9); POTASSIUM 3.8 mmol/L (3.5-5.1); SODIUM SERUM 144 mmol/L (136-145); TOTAL BILIRUBIN 0.1 mg/dL (0.0-1.0); UREA NITROGEN, BLOOD 14 mg/dL (7-18)
[2018-02-05 08:00] VITALS: BP 105/62
[2018-02-05] MEDS: CARBIDOPA/LEVODOPA 25/100 MG 1 TAB PO SCH ×2 (08:23→20:00)
[2018-02-05] MEDS: QUEtiapine FUMARATE 25 MG TAB PO SCH (08:24)
[2018-02-05] MEDS: CALCIUM CARB/VIT-D 500 MG/200 IU 1 TAB PO SCH (08:24)
[2018-02-05] MEDS: LACTOBACILLUS RHAMNOSUS GG 1 EACH CAP PO SCH (08:24)
[2018-02-05] MEDS: QUEtiapine FUMARATE 100 MG TAB PO SCH (08:24)
[2018-02-05] MEDS: ASCORBIC ACID 500 MG TAB PO SCH (08:24)
[2018-02-05] MEDS: chlordiazePOXIDE 25 MG CAP PO SCH ×3 (08:24→17:16)
[2018-02-05] MEDS: NACL 0.9% 1,000 ML IV SCH (08:29)
--- NOTE | 2018-02-05 09:10 | NUR ---
PT SITTING UP IN BED WATCHING TV. NO C/O PAIN OR DISCOMFORT. PT ASSISTED TO TOILET FOR BM. ABLE TO AMBULATE WITH STEADY GAIT. HAD x1 DARK, FORMED STOOL. PT NOTED TO BE TAKING IRON SUPP. ABLE TO AMB BACK TO BED. URINAL & CALL LIGHT PLACED WITHIN REACH.
--- NOTE | 2018-02-05 09:37 | NUR ---
Spoke to Cris supervisor instrument mechanics at [facility]. about the patient to go for procedure at [facility] and Dr. Penny and Dr Montague accepted the patient for admission, but per Cris she is tight on bed and at this point, there is no bed. She will call House sup at [facility] if she gets some discharges but she said most likely will be tomorrow.
--- NOTE | 2018-02-05 11:32 | NUR ---
PT IN BED, AWAKE, WATCHING TV. NO C/O PAIN OR DISCOMFORT. OFFERED ASSISTANCE WITH TOILETING/ADLs. PT STATES HE DOESN'T NEED ANYTHING RIGHT NOW. LEFT FOREARM IV INTACT & ASYMPTOMATIC WITH ONGOING IVF INFUSION. CALL LIGHT WITHIN REACH.
[2018-02-05 12:00] VITALS: BP 91/56
[2018-02-05] MEDS: DOCUSATE SODIUM 100 MG GELCAP PO PRN (12:17)
[2018-02-05] MEDS: FERROUS SULFATE 325 MG TABEC PO SCH (12:17)
--- NOTE | 2018-02-05 13:32 | NUR ---
PT ASLEEP, RESPIRATIONS EVEN & UNLABORED, FLACC 0. CALL LIGHT WITHIN REACH. LEFT FOREARM IV INTACT & ASYMPTOMATIC WITH ONGOING IVF INFUSION.
--- NOTE | 2018-02-05 15:10 | NUR ---
PT AWAKE, WATCHING TV. PARTICIPATED IN BED BATH. NO C/O PAIN OR DISCOMFORT. LEFT FOREARM IV INTACT & ASYMPTOMATIC WITH IVF INFUSING. CALL LIGHT WITHIN REACH.
[2018-02-05 16:00] VITALS: BP 102/52
--- NOTE | 2018-02-05 18:35 | NUR ---
PT SITTING UP IN BED EATING DINNER, NO SIGNS OF DISTRESS, NO C/O PAIN OR DISCOMFORT. LEFT FA IV INTACT & ASYMPTOMATIC WITH NS INFUSING @ 60ML/HR. CALL LIGHT WITHIN REACH.
--- NOTE | 2018-02-05 19:10 | NUR ---
BEDSIDE REPORT GIVEN TO PM SHIFT NURSE FAHRAD.
--- NOTE | 2018-02-05 19:12 | NUR ---
RECEIVED PT SLEEPING, EASILY AROUSABLE, AAOX3, ABLE TO MAKE NEEDS KNOWN BUT FORGETFUL AT TIMES, VITAL SIGNS STABLE, DENIES PAIN, PLAN OF CARE DISCUSSED, SAFETY MEASURES IN PLACE, SIDE RAILS UP AND BED ALARM ON, CALL LIGHT WITHIN REACH.
[2018-02-05 20:00] VITALS: BP 93/58
[2018-02-05] MEDS: ATORVASTATIN 20 MG TAB PO SCH (20:05)
--- NOTE | 2018-02-05 20:30 | NUR ---
BLOOD SUGAR CHECKED WITH 137 RESULT, SNACK PROVIDED, DUE MEDS TAKEN, ALL NEEDS ATTENDED.
[2018-02-06] VITALS: BP 88/58
--- NOTE | 2018-02-06 | NUR ---
PT SLEEPING, EASILY AROUSABLE, VITAL SIGNS TAKEN, BP-88/58, DR SHEIKH MADE AWARE STATED "THATS OK LONG THE MAP IS HIGHER THAN 65", IVF INFUSING WELL, CONTINUE TO MONITOR CLOSELY.
[2018-02-06] MEDS: NACL 0.9% 1,000 ML IV SCH ×3 (01:15→23:00)
--- NOTE | 2018-02-06 02:10 | NUR ---
PT VOIDED FREELY PER URINAL WITH BLOODY URINE 500ML, NO CLOTS NOTED, DENIES PAIN, MONITORED CLOSELY.
[2018-02-06 04:00] VITALS: BP 101/58
--- NOTE | 2018-02-06 04:00 | NUR ---
PT SLEEPING, EASILY AROUSABLE, VITAL SIGNS STABLE, DENIES PAIN, IVF INFUSING WELL, MONITORED CLOSELY.
--- NOTE | 2018-02-06 06:15 | NUR ---
PT AWAKE, BLOOD SUGAR CHECKED WITH 121 RESULT, DENIES PAIN, MADE AWARE OF PLANNED SURGERY, PT STATED "I DON'T NEED THAT, I FEEL BETTER NOW", MONITORED CLOSELY.
[2018-02-06] MEDS ORDERED: DOCUSATE SODIUM 100 MG GELCAP PO PRN (06:40)
--- NOTE | 2018-02-06 07:28 | NUR ---
PT AWAKE, NO DISTRESS NOTED, REPORT GIVEN TO RN AP FOR CONTINUITY OF CARE.
[2018-02-06 07:56] LABS: BASOPHILS # (AUTO) 0.1 K/uL (0.00-0.22); BASOPHILS % (AUTO) 1.4 % (0.0-2.0); EOSINOPHILS # (AUTO) 0.1 K/uL (0-0.4); EOSINOPHILS % (AUTO) 1.9 % (0.0-4.0); HEMATOCRIT 28.8 % (36-52); HEMOGLOBIN 8.9 g/dL (12.0-18.0); LYMPHOCYTES # (AUTO) 0.8 K/uL (2.0-11.5); LYMPHOCYTES % (AUTO) 19.6 % (20.5-51.1); MEAN CORPUSCULAR HEMOGLOBIN 27 pg (27-31); MEAN CORPUSCULAR HGB CONC 31 g/dL (33-37); MEAN CORPUSCULAR VOLUME 87.9 fL (80-94); MONOCYTES # (AUTO) 0.3 K/uL (0.8-1.0); MONOCYTES % (AUTO) 8.1 % (1.7-9.3); NEUTROPHILS # (AUTO) 2.8 K/uL (1.8-7.7); PLATELET COUNT (AUTO) 262 K/uL (140-450); RED BLOOD CELL COUNT(AUTO) 3.28 MIL/uL (4.20-6.10)
[2018-02-06 08:00] VITALS: BP 91/56
[2018-02-06] MEDS: BLOOD GLUCOSE MONITORING 1 DEV DEV FS SCH ×4 (08:13→20:21)
[2018-02-06 08:20] LABS: ANION GAP 6.5 (8-16); CARBON DIOXIDE 31.3 mmol/L (21-32); CHLORIDE 100 mmol/L (98-107); CREATININE 0.8 mg/dL (0.7-1.3); GLUCOSE 94 mg/dL (74-106); POTASSIUM 3.8 mmol/L (3.5-5.1); SODIUM SERUM 134 mmol/L (136-145); UREA NITROGEN, BLOOD 15 mg/dL (7-18)
[2018-02-06 08:25] LABS: PHOSPHORUS 3.6 mg/dL (2.5-4.9)
[2018-02-06] MEDS ORDERED: LORazepam 1 MG TAB PO PRN (08:25)
[2018-02-06] MEDS: ASCORBIC ACID 500 MG TAB PO SCH (10:46)
[2018-02-06] MEDS: chlordiazePOXIDE 25 MG CAP PO SCH ×3 (10:46→16:20)
[2018-02-06] MEDS: CARBIDOPA/LEVODOPA 25/100 MG 1 TAB PO SCH ×2 (10:46→20:21)
[2018-02-06] MEDS: LACTOBACILLUS RHAMNOSUS GG 1 EACH CAP PO SCH (10:47)
[2018-02-06] MEDS: CALCIUM CARB/VIT-D 500 MG/200 IU 1 TAB PO SCH (10:47)
[2018-02-06] MEDS: QUEtiapine FUMARATE 25 MG TAB PO SCH (10:52)
[2018-02-06] MEDS: SENNA 8.6 MG TAB PO SCH (10:52)
[2018-02-06] MEDS: QUEtiapine FUMARATE 100 MG TAB PO SCH (10:52)
[2018-02-06 12:00] VITALS: BP 100/58
[2018-02-06] MEDS: FERROUS SULFATE 325 MG TABEC PO SCH (13:20)
--- NOTE | 2018-02-06 13:23 | NUR ---
I CALLED MARIELY AT [facility] THIS AM. THEY ARE LOOKING FOR ACCEPTING PHYSICIAN AND A BED FOR THIS PATIENT. I CALLED MO FROM [facility]. SHE SAID THE PATIENT HAS NO FAMILY AND NO CONSERVATOR. HAS BEEN LIVING THERE FOR ABOUT 1 YEAR. HE DOES GET SOME MONEY FROM [employer]. HE IS INDEPENDENT OF ALL ACITIVITIES. NO MEDICAL EQUIPMENT.
--- NOTE | 2018-02-06 13:25 | NUR ---
RECEIVED A CALL FROM MARIELY FROM [facility], [phone]. SHE SAID THE PATIENT CAN GO TO ROOM 681A. CALL REPORT [phone]. HE WILL GO UNDER DR. ANDREA, TELEMETRY BED. [facility] WILL NEED TO STOP IN ER FIRST. I TRIED TO CALL DR. PAZ TO INFORM HER AND TO MAKE SURE THE PATIENT IS WILLING TO BE TRANSFERED. DID CALL DR. IBARRA AND HE SAID HE WOULD GET IN TOUCH WITH DR. PAZ TO CALL ME..
--- NOTE | 2018-02-06 14:14 | NUR ---
5448 SPOKE WITH PT AT BEDSIDE. PT ABLE TO STATE THAT HE LIVES AT [facility] AND THAT IS WHERE HE WANTS TO RETURN TO WHEN HE IS READY FOR DISCHARGE. PT STATED THAT HE DOES NOT WANT TO HAVE ANY SURGERY AND JUST WANTS TO RETURN HOME. PT DID STATED THAT IF THE PHYSICIAN RECOMMENDED A SHORT STAY IN A SNF HE WOULD BE OPEN TO DO SO LONG HE WOULD EVENTUALLY RETURN HOME. PT STATED THAT HE DOES NOT HAVE ANY RELATIVES AND SPOKE OF HIS PARENTS WHO HAVE PASSED AND HE DENIED HAVING ANY SIBLINGS.
--- NOTE | 2018-02-06 15:21 | NUR ---
PER DR. KELLY PATIENT IS REFUSING TO GO TO [facility]. I CALLED MARIELY AT [facility] AND TOLD HER PATIENT REFUSING TRANSFER. TRANSFER CANCELED.
[2018-02-06 16:00] VITALS: BP 92/52
--- NOTE | 2018-02-06 16:02 | NUR ---
PT STANDING IN BATHROOM COMPLETELY NAKED, URINE ALL OVER THE FLOOR AROUND THE BED, IV TUBUING CUT OFF IN THE MIDDLE, PT STATES HE HAD TO GO TO THE BATHROOM. PT INSTRUCTED TO PUSH THE CALL PIERSON FOR HELP IF PT UNABLE TO DISCONNECT IV OR LEADS ARE TANGLED PT VERBALIZED UNDERSTANDING, PT APPEARS ANXIOUS AGITATED, ATIVAN GIVEN.
--- NOTE | 2018-02-06 16:55 | NUR ---
PER PHARMACIST MINA POLLOCK. [facility] [place] CALLED TO VERIFY SEROQUEL DOSE, PT TAKES TOTAL OF 125MG EVERY MORNING (100MG TAB AND 25MG TAB).
--- NOTE | 2018-02-06 17:30 | NUR ---
PT RESTING QUIETLY IN NAD, RESP EVNE UNLABORED, PT CONTINUES TO HAVE BLOODY URINE, DENIES PAIN OR DISCOMFORT, DENIES ANY IMMEDIATE NEEDS, IVF INFUSING, SITE WNL, WILL CONTINUE TO MOTNIOR.
--- NOTE | 2018-02-06 19:19 | NUR ---
REPORT GIVEN TO [employer] RN NURSE, PT RESTING IN NAD.
--- NOTE | 2018-02-06 19:20 | NUR ---
RECEIVED REPORT FROM AP AT BEDSIDE FOR CONTINUITY OF CARE. PT AAOX2. IV NOTED LFA 18G NS AT 30ML/HR. NO SOB NO S/S OF DISTRESS ON RA. URINAL AT BEDSIDE. BED LOWERED CALL LIGHT WITHIN REACH WILL CONTINUE TO MONITOR. POSSIBLE D/C TOMORROW.
[2018-02-06 20:00] VITALS: BP 96/61
[2018-02-06] MEDS ORDERED: SIMVASTATIN 20 MG TAB PO SCH (21:00)
[2018-02-06] MEDS ORDERED: HALOPERIDOL IM 5 MG/ML VIAL IM SCH (21:00)
--- NOTE | 2018-02-06 21:00 | NUR ---
A BIT CONFUSED WANTED TO GET UP TO USE BATHROOM, OFFERED URINAL PT DECLINED. PT AMBULATED TO BATHROOM W STEADY GAIT. WILL CONTINUE TO MONITOR.
--- NOTE | 2018-02-06 21:15 | NUR ---
PT TOOK MEDS WELL. WILL CONTINUE TO MONITOR.
[2018-02-07] VITALS: BP 90/51
--- NOTE | 2018-02-07 | NUR ---
NO SOB NO S/S OF DISTRESS ON RA. WILL CONTINUE TO MONITOR.
[2018-02-07 04:00] VITALS: BP 109/68
[2018-02-07] MEDS ORDERED: FERR-252 PO (06:23)
[2018-02-07] MEDS ORDERED: LACT10CA1 PO (06:28)
[2018-02-07] MEDS ORDERED: CEPH250C16 PO (06:28)
--- NOTE | 2018-02-07 07:15 | NUR ---
ENDORSED REPORT TO [employer] NURSE FOR CONTINUITY OF CARE.
--- NOTE | 2018-02-07 07:16 | NUR ---
RECEIVED SBAR REPORT FROM NIGHT RN AT PT BEDSIDE. PATIENT IS ALERT AND ORIENTED. FOLLOWS COMMANDS. DENIES PAIN/DISCOMFORT. ON ROOM AIR NO S/S OF RESPIRATORY DISTRESS. SKIN CLEAN AND DRY. ASSISTED IN CHANGING OF POSITIONS. PATIENT IV SITE PATENT AND INTACT. CALL LIGHT WITHIN REACH.
[2018-02-07 07:26] LABS: BASOPHILS # (AUTO) 0.1 K/uL (0.00-0.22); BASOPHILS % (AUTO) 1.3 % (0.0-2.0); EOSINOPHILS # (AUTO) 0.1 K/uL (0-0.4); EOSINOPHILS % (AUTO) 2.5 % (0.0-4.0); LYMPHOCYTES # (AUTO) 0.8 K/uL (2.0-11.5); LYMPHOCYTES % (AUTO) 19.5 % (20.5-51.1); MEAN CORPUSCULAR HEMOGLOBIN 28 pg (27-31); MEAN CORPUSCULAR HGB CONC 31 g/dL (33-37); MEAN CORPUSCULAR VOLUME 88.8 fL (80-94); MONOCYTES # (AUTO) 0.3 K/uL (0.8-1.0); MONOCYTES % (AUTO) 6.4 % (1.7-9.3); NEUTROPHILS # (AUTO) 2.8 K/uL (1.8-7.7); NEUTROPHILS % (AUTO) 70.3 % (42.2-75.2); PLATELET COUNT (AUTO) 243 K/uL (140-450); RED BLOOD CELL COUNT(AUTO) 3.27 MIL/uL (4.20-6.10); RED CELL DISTRIBUTION WIDTH 19.1 % (11.6-13.7)
[2018-02-07] MEDS: BLOOD GLUCOSE MONITORING 1 DEV DEV FS SCH (07:27)
[2018-02-07 07:59] LABS: ANION GAP 9.5 (8-16); CARBON DIOXIDE 31.6 mmol/L (21-32); CHLORIDE 106 mmol/L (98-107); CREATININE 0.8 mg/dL (0.7-1.3); GLUCOSE 96 mg/dL (74-106); POTASSIUM 4.1 mmol/L (3.5-5.1); SODIUM SERUM 143 mmol/L (136-145); UREA NITROGEN, BLOOD 16 mg/dL (7-18)
[2018-02-07 08:00] VITALS: BP 97/64
--- NOTE | 2018-02-07 08:42 | NUR ---
RECEIVED AN ORDER FOR PATIENT TO BE TRANFERED TO HIGHER LEVEL OF CARE. I SPOKE WITH DR. PAZ AND SHE SAID SHE SPOKE WITH THE PATIENT AND HE IS AGREEABLE TO GO TO [facility]. I CALLED MARIELY AT [facility], [phone] AND INFORMED HER AND ALSO SAID HE NEEDED A MED SURG BED. SHE SAID SHE STILL HAD ALL THE PAPERWORK, AND DID NOT NEED ME TO SEND HER ANYTHING. SHE WILL CALL ME BACK.
[2018-02-07] MEDS: LACTOBACILLUS RHAMNOSUS GG 1 EACH CAP PO SCH (08:59)
[2018-02-07] MEDS: ASCORBIC ACID 500 MG TAB PO SCH (08:59)
[2018-02-07] MEDS: QUEtiapine FUMARATE 25 MG TAB PO SCH (09:00)
[2018-02-07] MEDS: CALCIUM CARB/VIT-D 500 MG/200 IU 1 TAB PO SCH (09:00)
[2018-02-07] MEDS: QUEtiapine FUMARATE 100 MG TAB PO SCH (09:00)
[2018-02-07] MEDS: CARBIDOPA/LEVODOPA 25/100 MG 1 TAB PO SCH (09:00)
[2018-02-07] MEDS: SENNA 8.6 MG TAB PO SCH (09:00)
[2018-02-07] MEDS: chlordiazePOXIDE 25 MG CAP PO SCH (09:00)
--- NOTE | 2018-02-07 10:03 | NUR ---
BOB QUIROZCOMMISSIONING AGENT RECEIVED A CALL FROM ZHENG FROM [facility]. THE PATIENT CAN GO TO ROOM 490A UNDER DR. ANDREA. CALL REPORT TO [phone]. I CALLED [facility] AND SET UP TRANSPORT FOR 10:30 P.M. I INFORMED AP QUIROZLAB ANALYST NURSE. I INFORMED ATUL FLORES RN AND GAVE HIM THE PHONE FOR [facility]. I ALSO INFORMED DR. DHILLON CALLED MO FROM [facility] AND INFORMED HER OF THE TRANSFER.
[2018-02-07 10:08] VITALS: BP 97/64
--- NOTE | 2018-02-07 10:10 | NUR ---
SBAR REPORT CALLED TO RICHIE POMPA, ACCEPTING RN AT [facility]. PATIENT TO BE TRANSFERRED TO ROOM 490A. PATIENT IN AGREEMENT WITH DISCHARGE PLANNING AND TRANSFER. NO ACUTE DISTRESS NOTED.
--- NOTE | 2018-02-07 10:58 | NUR ---
PATIENT TAKEN OFF UNIT BY [facility] TRANSPORT. PATIENT DISCHARGE TEACHING GIVEN, VERBALIZED UNDERSTANDING. NO S/S OF ACUTE DISTRESS NOTED. PATIENT BEING TRANSFERRED TO [facility]. IV LEFT INTACT.
== END 2018-02-07 10:58 | disposition short-term general hospital (02) | DRG 74 ==
LOC: MED 13:25 → MTU 15:04
PROVIDERS: ADMIT Family Medicine; ATTEND Family Medicine
PROC: 30233N1 Transfusion of Nonautologous Red Blood Cells into Peripheral Vein, Percutaneous Approach (ICD-10-PCS; principal; 2018-02-02)
DX: G90.8 Other disorders of autonomic nervous system (principal); E44.1 Mild protein-calorie malnutrition; Z68.1 Body mass index [BMI] 19.9 or less, adult; C67.9 Malignant neoplasm of bladder, unspecified; D64.9 Anemia, unspecified; E78.00 Pure hypercholesterolemia, unspecified; F20.9 Schizophrenia, unspecified; M19.90 Unspecified osteoarthritis, unspecified site; E83.51 Hypocalcemia; G20 Parkinson's disease; E11.9 Type 2 diabetes mellitus without complications; I10 Essential (primary) hypertension; E78.5 Hyperlipidemia, unspecified; F17.210 Nicotine dependence, cigarettes, uncomplicated; R31.0 Gross hematuria; K59.00 Constipation, unspecified
CPT/HCPCS: 36415; 70450; 71045; 76700; 80048; 80053; 80305; 81001; 82140; 82272; 82550; 82607; 82728; 82746; 82948; 83036; 83540; 83690; 83735; 83880; 84100; 84134; 84443; 84484; 85025; 85045; 85610; 85730; 86886; 86900; 86901; 86920; 87081; 93005; 93880; 96360; 96361; 97110; 97161-GP; 97530; 99285; G0480; G0482; J0696; J1815; J2916; J7030; J7060; P9016; Q0092; Q9967

== ENCOUNTER 2018-10-28 13:14 | Inpatient (IN) | payer MEDICARE, OTHER ==
[~2018-10-28] VITALS: Ht 165.1 cm; Wt 72.1 kg
[2018-10-28] VITALS (7 sets, daily range): BP systolic 80–114; BP diastolic 40–72
[~2018-10-28 13:14] MED LIST changes: +CEPH250C16 PO; +LACT10CA1 PO
[2018-10-28] MEDS ORDERED: NACL 0.9% 1,000 ML IV ONE (13:25)
[2018-10-28 15:02] LABS: PROTHROMBIN TIME 14.2 secs (10.8-13.4)
[2018-10-28] MEDS ORDERED: ADENOSINE 6 MG/2 ML VIAL IVP ONE (15:45)
[2018-10-28] MEDS ORDERED: fentaNYL 0.05 MG/ML VIAL IVP ONE (15:45)
[2018-10-28] MEDS ORDERED: ADENOSINE 6 MG/2 ML VIAL IVP STA (15:48)
[2018-10-28] MEDS ORDERED: fentaNYL 0.05 MG/ML VIAL IVP STA (15:48)
[2018-10-28 15:51] LABS: APPEARANCE,URINE CLOUDY (CLEAR); BILIRUBIN,URINE 1+ (NEGATIVE); BLOOD, URINE 3+ (NEGATIVE); COLOR,URINE RED (YELLOW); LEUKOCYTE ESTERASE ,URINE 2+ (NEGATIVE); NITRITE, URINE POSITIVE (NEGATIVE); PH,URINE 6.5 (5.0-9.0); UGLUCOSE NEGATIVE (NEGATIVE)
[2018-10-28 15:55] LABS: ALBUMIN 2.6 g/dL (3.4-5.0); ANION GAP 31.1 (8-16); ASPARTATE AMINOTRANSFERASE 11 U/L (15-37); CHLORIDE 98 mmol/L (98-107); CREATININE 1.5 mg/dL (0.7-1.3); GLUCOSE 226 mg/dL (74-106); POTASSIUM 4.4 mmol/L (3.5-5.1); SODIUM SERUM 134 mmol/L (136-145); TOTAL BILIRUBIN 0.6 mg/dL (0.0-1.0); UREA NITROGEN, BLOOD 32 mg/dL (7-18)
[2018-10-28 15:57] LABS: BASOPHILS % (AUTO) 0.2 % (0.0-2.0); LYMPHOCYTES # (AUTO) 0.6 K/uL (2.0-11.5); MEAN CORPUSCULAR HEMOGLOBIN 14 pg (27-31); MEAN CORPUSCULAR HGB CONC 24 g/dL (33-37); MEAN CORPUSCULAR VOLUME 56.5 fL (80-94); MONOCYTES # (AUTO) 0.9 K/uL (0.8-1.0); MONOCYTES % (AUTO) 9.1 % (1.7-9.3); NEUTROPHILS # (AUTO) 8.1 K/uL (1.8-7.7); PLATELET COUNT (AUTO) 304 K/uL (140-450); RED BLOOD CELL COUNT(AUTO) 1.78 MIL/uL (4.20-6.10); RED CELL DISTRIBUTION WIDTH 25.6 % (11.6-13.7); WHITE BLOOD COUNT (AUTO) 9.5 K/uL (4.8-10.8)
[2018-10-28 15:59] LABS: HEMATOCRIT 10.1 % (36-52); HEMOGLOBIN 2.4 g/dL (12.0-18.0)
[2018-10-28 16:00] LABS: LYMPHOCYTES % (AUTO) 6.1 % (20.5-51.1); NEUTROPHILS % (AUTO) 84.6 % (42.2-75.2)
[2018-10-28 16:11] LABS: CARBON DIOXIDE 9.3 mmol/L (21-32)
[2018-10-28 16:32] LABS: RBC,URINE >20 (MANY) /HPF (0-5)
[2018-10-28] MEDS ORDERED: MORPHINE SULFATE 4 MG/ML SYR IVP PRN (16:35)
[2018-10-28] MEDS ORDERED: ONDANSETRON 4 MG/2 ML VIAL IVP PRN (16:35)
[2018-10-28] MEDS ORDERED: ACETAMINOPHEN 325 MG TAB PO PRN (16:35)
[2018-10-28] MEDS ORDERED: MORPHINE SULFATE 2 MG/ML SYR IVP PRN (16:35)
[2018-10-28 17:18] LABS: CREATINE KINASE MB 5.1 ng/mL (0-3.6)
[2018-10-28] MEDS: DEXT 5% /NACL 0.9% 1,000 ML IV SCH (17:30)
[2018-10-28] MEDS: FERROUS SULFATE 325 MG TABEC PO SCH (17:55)
[2018-10-28] MEDS ORDERED: cefTRIAXone 1,000 MG VIAL ONE (19:00)
[2018-10-28] MEDS ORDERED: FUROSEMIDE 40 MG/4 ML VIAL IVP ONE (19:30)
[2018-10-28] MEDS: CARBIDOPA/LEVODOPA 25/100 MG 1 TAB PO SCH (20:41)
[2018-10-28] MEDS: QUEtiapine FUMARATE 100 MG TAB PO SCH (20:42)
[2018-10-28] MEDS ORDERED: FUROSEMIDE 40 MG/4 ML VIAL IVP SCH (21:15)
[2018-10-28] MEDS ORDERED: SIMVASTATIN 20 MG TAB PO SCH (21:30)
[2018-10-29] VITALS (29 sets, daily range): BP systolic 91–117; BP diastolic 42–77
[2018-10-29] MEDS: DEXT 5% /NACL 0.9% 1,000 ML IV SCH ×3 (02:35→19:30)
[2018-10-29 02:55] LABS: NEUTROPHILS # (AUTO) 6.3 K/uL (1.8-7.7); WHITE BLOOD COUNT (AUTO) 7.3 K/uL (4.8-10.8)
[2018-10-29 03:03] LABS: BASOPHILS % (AUTO) 0.3 % (0.0-2.0); LYMPHOCYTES # (AUTO) 0.4 K/uL (2.0-11.5); LYMPHOCYTES % (AUTO) 4.8 % (20.5-51.1); MEAN CORPUSCULAR HEMOGLOBIN 23 pg (27-31); MEAN CORPUSCULAR HGB CONC 32 g/dL (33-37); MEAN CORPUSCULAR VOLUME 71.7 fL (80-94); MONOCYTES # (AUTO) 0.6 K/uL (0.8-1.0); MONOCYTES % (AUTO) 8.7 % (1.7-9.3); NEUTROPHILS % (AUTO) 86.2 % (42.2-75.2); PLATELET COUNT (AUTO) 178 K/uL (140-450); RED BLOOD CELL COUNT(AUTO) 2.88 MIL/uL (4.20-6.10); RED CELL DISTRIBUTION WIDTH 36.2 % (11.6-13.7)
[2018-10-29 03:06] LABS: HEMOGLOBIN 6.6 g/dL (12.0-18.0)
[2018-10-29 03:07] LABS: HEMATOCRIT 20.6 % (36-52)
[2018-10-29 05:06] LABS: BASOPHILS % (AUTO) 0.4 % (0.0-2.0); HEMOGLOBIN 7.1 g/dL (12.0-18.0); LYMPHOCYTES # (AUTO) 0.3 K/uL (2.0-11.5); LYMPHOCYTES % (AUTO) 4.3 % (20.5-51.1); MEAN CORPUSCULAR HEMOGLOBIN 23 pg (27-31); MEAN CORPUSCULAR HGB CONC 33 g/dL (33-37); MEAN CORPUSCULAR VOLUME 71.5 fL (80-94); MONOCYTES # (AUTO) 0.6 K/uL (0.8-1.0); MONOCYTES % (AUTO) 8.1 % (1.7-9.3); NEUTROPHILS # (AUTO) 6.3 K/uL (1.8-7.7); NEUTROPHILS % (AUTO) 87.2 % (42.2-75.2); PLATELET COUNT (AUTO) 175 K/uL (140-450); RED BLOOD CELL COUNT(AUTO) 3.08 MIL/uL (4.20-6.10); RED CELL DISTRIBUTION WIDTH 36.3 % (11.6-13.7); WHITE BLOOD COUNT (AUTO) 7.2 K/uL (4.8-10.8)
[2018-10-29 05:11] LABS: ANION GAP 13.9 (8-16); CARBON DIOXIDE 23.6 mmol/L (21-32); CHLORIDE 99 mmol/L (98-107); CREATININE 1.1 mg/dL (0.7-1.3); GLUCOSE 267 mg/dL (74-106); POTASSIUM 3.5 mmol/L (3.5-5.1); SODIUM SERUM 133 mmol/L (136-145); UREA NITROGEN, BLOOD 29 mg/dL (7-18)
[2018-10-29 05:14] LABS: PHOSPHORUS 2.6 mg/dL (2.5-4.9)
[2018-10-29] MEDS: FERROUS SULFATE 325 MG TABEC PO SCH ×3 (08:00→17:17)
[2018-10-29] MEDS: CARBIDOPA/LEVODOPA 25/100 MG 1 TAB PO SCH ×2 (08:00→20:24)
[2018-10-29] MEDS: QUEtiapine FUMARATE 25 MG TAB PO SCH (10:03)
[2018-10-29] MEDS: LACTOBACILLUS RHAMNOSUS GG 1 EACH CAP PO SCH (10:03)
[2018-10-29 14:46] LABS: BASOPHILS # (AUTO) 0.1 K/uL (0.00-0.22); BASOPHILS % (AUTO) 1.5 % (0.0-2.0); EOSINOPHILS % (AUTO) 0.1 % (0.0-4.0); HEMATOCRIT 27.7 % (36-52); HEMOGLOBIN 8.9 g/dL (12.0-18.0); LYMPHOCYTES # (AUTO) 0.6 K/uL (2.0-11.5); MEAN CORPUSCULAR HEMOGLOBIN 24 pg (27-31); MEAN CORPUSCULAR HGB CONC 32 g/dL (33-37); MEAN CORPUSCULAR VOLUME 74.8 fL (80-94); MONOCYTES # (AUTO) 0.6 K/uL (0.8-1.0); MONOCYTES % (AUTO) 7.6 % (1.7-9.3); NEUTROPHILS # (AUTO) 7.1 K/uL (1.8-7.7); NEUTROPHILS % (AUTO) 83.8 % (42.2-75.2); PLATELET COUNT (AUTO) 131 K/uL (140-450); RED CELL DISTRIBUTION WIDTH 32.6 % (11.6-13.7); WHITE BLOOD COUNT (AUTO) 8.4 K/uL (4.8-10.8)
[2018-10-29 15:27] LABS: CREATINE KINASE MB 7.1 ng/mL (0-3.6)
[2018-10-29] MEDS ORDERED: ADENOSINE 6 MG/2 ML VIAL IVP ONE ×3 (19:00→19:16)
[2018-10-29] MEDS ORDERED: AMIODARONE 150 MG in DEXTROSE 5% 100 ML IV ONE (19:15)
[2018-10-29] MEDS: AMIODARONE 450 MG in DEXTROSE 5% 250 ML IV SCH (19:27)
[2018-10-29] MEDS ORDERED: AMIODARONE 150 MG/3 ML VIAL IV ONE (19:29)
[2018-10-29] MEDS ORDERED: AMIODARONE 450 MG/9 ML VIAL IV ONE (19:29)
[2018-10-29 19:43] LABS: HEMATOCRIT 28.4 % (36-52); HEMOGLOBIN 9.1 g/dL (12.0-18.0)
[2018-10-29] MEDS: SIMVASTATIN 20 MG TAB PO SCH (20:24)
[2018-10-29] MEDS: QUEtiapine FUMARATE 100 MG TAB PO SCH (20:24)
[2018-10-29] MEDS ORDERED: DILTIAZEM 25 MG/5 ML VIAL IVP ONE (23:00)
[2018-10-30] VITALS (79 sets, daily range): BP systolic 90–119; BP diastolic 39–91
[2018-10-30] MEDS ORDERED: NACL 0.9% 250 ML IV SCH ×2 (00:10→00:50)
[2018-10-30] MEDS ORDERED: DIGOXIN 0.25 MG/ML AMP IV ONE (01:20)
[2018-10-30] MEDS: AMIODARONE 450 MG in DEXTROSE 5% 250 ML IV SCH (02:58)
[2018-10-30] MEDS ORDERED: AMIODARONE 450 MG/9 ML VIAL IV ONE (03:06)
[2018-10-30] MEDS: DEXT 5% /NACL 0.9% 1,000 ML IV SCH ×2 (06:44→16:24)
[2018-10-30 06:47] LABS: ANION GAP 12.6 (8-16); CARBON DIOXIDE 22.6 mmol/L (21-32); CHLORIDE 101 mmol/L (98-107); PHOSPHORUS 1.5 mg/dL (2.5-4.9); POTASSIUM 3.2 mmol/L (3.5-5.1); SODIUM SERUM 133 mmol/L (136-145)
[2018-10-30 06:48] LABS: BASOPHILS % (AUTO) 0.3 % (0.0-2.0); CREATININE 0.8 mg/dL (0.7-1.3); EOSINOPHILS % (AUTO) 0.3 % (0.0-4.0); GLUCOSE 177 mg/dL (74-106); HEMATOCRIT 26.9 % (36-52); HEMOGLOBIN 8.7 g/dL (12.0-18.0); LYMPHOCYTES # (AUTO) 0.7 K/uL (2.0-11.5); LYMPHOCYTES % (AUTO) 8.8 % (20.5-51.1); MEAN CORPUSCULAR HEMOGLOBIN 24 pg (27-31); MEAN CORPUSCULAR HGB CONC 33 g/dL (33-37); MEAN CORPUSCULAR VOLUME 74.2 fL (80-94); MONOCYTES # (AUTO) 0.7 K/uL (0.8-1.0); MONOCYTES % (AUTO) 8.6 % (1.7-9.3); NEUTROPHILS # (AUTO) 6.7 K/uL (1.8-7.7); PLATELET COUNT (AUTO) 108 K/uL (140-450); RED BLOOD CELL COUNT(AUTO) 3.62 MIL/uL (4.20-6.10); RED CELL DISTRIBUTION WIDTH 33.2 % (11.6-13.7); UREA NITROGEN, BLOOD 15 mg/dL (7-18); WHITE BLOOD COUNT (AUTO) 8.2 K/uL (4.8-10.8)
[2018-10-30] MEDS: QUEtiapine FUMARATE 25 MG TAB PO SCH (08:33)
[2018-10-30] MEDS: FERROUS SULFATE 325 MG TABEC PO SCH ×3 (08:33→17:24)
[2018-10-30] MEDS: LACTOBACILLUS RHAMNOSUS GG 1 EACH CAP PO SCH (08:33)
[2018-10-30] MEDS: CARBIDOPA/LEVODOPA 25/100 MG 1 TAB PO SCH ×2 (08:33→20:33)
[2018-10-30] MEDS ORDERED: NACL IV SCH (09:00)
[2018-10-30] MEDS ORDERED: POTASSIUM PHOSPHATE IV SCH (09:00)
[2018-10-30] MEDS ORDERED: DIGOXIN 0.25 MG/ML AMP IV SCH (10:23)
[2018-10-30] MEDS ORDERED: PROBIOTIC SCREEN 1 EA MISC MC PRN (10:50)
[2018-10-30] MEDS ORDERED: DILTIAZEM 25 MG/5 ML VIAL IVP SCH (11:00)
[2018-10-30] MEDS ORDERED: AMIODARONE 200 MG TAB PO SCH (18:30)
[2018-10-30] MEDS: SIMVASTATIN 20 MG TAB PO SCH (20:33)
[2018-10-30] MEDS: QUEtiapine FUMARATE 100 MG TAB PO SCH (20:35)
[2018-10-31] VITALS (9 sets, daily range): BP systolic 105–125; BP diastolic 60–72
[2018-10-31] MEDS: DEXT 5% /NACL 0.9% 1,000 ML IV SCH (02:55)
[2018-10-31 06:09] LABS: PHOSPHORUS 2.2 mg/dL (2.5-4.9)
[2018-10-31 06:16] LABS: ALBUMIN 1.9 g/dL (3.4-5.0); ANION GAP 12.5 (8-16); ASPARTATE AMINOTRANSFERASE 15 U/L (15-37); CARBON DIOXIDE 21.8 mmol/L (21-32); CHLORIDE 103 mmol/L (98-107); CREATININE 0.8 mg/dL (0.7-1.3); GLUCOSE 141 mg/dL (74-106); POTASSIUM 3.3 mmol/L (3.5-5.1); SODIUM SERUM 134 mmol/L (136-145); TOTAL BILIRUBIN 0.9 mg/dL (0.0-1.0); UREA NITROGEN, BLOOD 10 mg/dL (7-18)
[2018-10-31 06:59] LABS: BASOPHILS % (AUTO) 0.2 % (0.0-2.0); EOSINOPHILS # (AUTO) 0.1 K/uL (0-0.4); EOSINOPHILS % (AUTO) 0.8 % (0.0-4.0); HEMATOCRIT 28.3 % (36-52); HEMOGLOBIN 8.9 g/dL (12.0-18.0); LYMPHOCYTES # (AUTO) 0.4 K/uL (2.0-11.5); LYMPHOCYTES % (AUTO) 6.8 % (20.5-51.1); MEAN CORPUSCULAR HEMOGLOBIN 24 pg (27-31); MEAN CORPUSCULAR HGB CONC 32 g/dL (33-37); MEAN CORPUSCULAR VOLUME 76.1 fL (80-94); MONOCYTES # (AUTO) 0.8 K/uL (0.8-1.0); MONOCYTES % (AUTO) 12.1 % (1.7-9.3); NEUTROPHILS # (AUTO) 5.2 K/uL (1.8-7.7); NEUTROPHILS % (AUTO) 80.1 % (42.2-75.2); PLATELET COUNT (AUTO) 101 K/uL (140-450); RED BLOOD CELL COUNT(AUTO) 3.71 MIL/uL (4.20-6.10); RED CELL DISTRIBUTION WIDTH 32.8 % (11.6-13.7)
[2018-10-31 07:55] LABS: WHITE BLOOD COUNT (AUTO) 6.6 K/uL (4.8-10.8)
[2018-10-31] MEDS: CARBIDOPA/LEVODOPA 25/100 MG 1 TAB PO SCH ×2 (08:56→20:00)
[2018-10-31] MEDS: FERROUS SULFATE 325 MG TABEC PO SCH (08:56)
[2018-10-31] MEDS: LACTOBACILLUS RHAMNOSUS GG 1 EACH CAP PO SCH (08:56)
[2018-10-31] MEDS: AMIODARONE 200 MG TAB PO SCH ×2 (08:57→20:01)
[2018-10-31] MEDS: QUEtiapine FUMARATE 25 MG TAB PO SCH (08:57)
[2018-10-31] MEDS ORDERED: POTASSIUM CHLORIDE 10 MEQ TABER PO SCH (09:49)
[2018-10-31] MEDS: FERROUS GLUCONATE 324 MG TAB PO SCH (17:03)
[2018-10-31] MEDS: QUEtiapine FUMARATE 100 MG TAB PO SCH (20:00)
[2018-10-31] MEDS: SIMVASTATIN 20 MG TAB PO SCH (20:00)
[2018-10-31] MEDS: CARVEDILOL 6.25 MG TAB PO SCH (20:01)
[2018-11-01] VITALS: BP 99/60
[2018-11-01 04:00] VITALS: BP 97/59
[2018-11-01 07:28] LABS: ANION GAP 12.4 (8-16); CARBON DIOXIDE 23.5 mmol/L (21-32); CHLORIDE 104 mmol/L (98-107); CREATININE 0.8 mg/dL (0.7-1.3); GLUCOSE 138 mg/dL (74-106); POTASSIUM 3.9 mmol/L (3.5-5.1); SODIUM SERUM 136 mmol/L (136-145); UREA NITROGEN, BLOOD 13 mg/dL (7-18)
[2018-11-01 07:33] LABS: BASOPHILS % (AUTO) 0.3 % (0.0-2.0); EOSINOPHILS # (AUTO) 0.1 K/uL (0-0.4); EOSINOPHILS % (AUTO) 1.1 % (0.0-4.0); HEMATOCRIT 28.9 % (36-52); HEMOGLOBIN 9.3 g/dL (12.0-18.0); LYMPHOCYTES # (AUTO) 0.6 K/uL (2.0-11.5); LYMPHOCYTES % (AUTO) 8.6 % (20.5-51.1); MEAN CORPUSCULAR HEMOGLOBIN 24 pg (27-31); MEAN CORPUSCULAR HGB CONC 32 g/dL (33-37); MEAN CORPUSCULAR VOLUME 75.1 fL (80-94); MONOCYTES # (AUTO) 0.9 K/uL (0.8-1.0); MONOCYTES % (AUTO) 13.4 % (1.7-9.3); NEUTROPHILS # (AUTO) 5.3 K/uL (1.8-7.7); NEUTROPHILS % (AUTO) 76.6 % (42.2-75.2); PLATELET COUNT (AUTO) 84 K/uL (140-450); RED BLOOD CELL COUNT(AUTO) 3.85 MIL/uL (4.20-6.10); RED CELL DISTRIBUTION WIDTH 34.1 % (11.6-13.7); WHITE BLOOD COUNT (AUTO) 6.9 K/uL (4.8-10.8)
[2018-11-01 07:40] LABS: MAGNESIUM 2.1 mg/dL (1.8-2.4); PHOSPHORUS 2.7 mg/dL (2.5-4.9)
[2018-11-01 08:00] VITALS: BP 128/60
[2018-11-01] MEDS: FERROUS GLUCONATE 324 MG TAB PO SCH ×2 (08:43→17:47)
[2018-11-01] MEDS: AMIODARONE 200 MG TAB PO SCH ×2 (08:44→20:29)
[2018-11-01] MEDS: CARVEDILOL 6.25 MG TAB PO SCH ×2 (08:45→20:29)
[2018-11-01] MEDS: LACTOBACILLUS RHAMNOSUS GG 1 EACH CAP PO SCH (08:45)
[2018-11-01] MEDS: FOLIC ACID 1 MG TAB PO SCH (08:46)
[2018-11-01] MEDS: QUEtiapine FUMARATE 25 MG TAB PO SCH (08:46)
[2018-11-01] MEDS: CARBIDOPA/LEVODOPA 25/100 MG 1 TAB PO SCH ×2 (08:47→20:29)
[2018-11-01 12:00] VITALS: BP 107/68
[2018-11-01] MEDS ORDERED: AMIO200T10 PO (12:23)
[2018-11-01 16:00] VITALS: BP 120/77
[2018-11-01 20:00] VITALS: BP 109/60
[2018-11-01] MEDS: SIMVASTATIN 20 MG TAB PO SCH (20:29)
[2018-11-01] MEDS: QUEtiapine FUMARATE 100 MG TAB PO SCH (20:29)
[2018-11-02] VITALS: BP 118/58
[2018-11-02 04:00] VITALS: BP 112/60
[2018-11-02 07:20] LABS: ANION GAP 12.1 (8-16); CARBON DIOXIDE 25.2 mmol/L (21-32); CHLORIDE 103 mmol/L (98-107); CREATININE 0.7 mg/dL (0.7-1.3); GLUCOSE 141 mg/dL (74-106); POTASSIUM 4.3 mmol/L (3.5-5.1); SODIUM SERUM 136 mmol/L (136-145); UREA NITROGEN, BLOOD 16 mg/dL (7-18)
[2018-11-02 07:21] LABS: HEMATOCRIT 28.4 % (36-52); MEAN CORPUSCULAR HEMOGLOBIN 24 pg (27-31); MEAN CORPUSCULAR HGB CONC 32 g/dL (33-37); PLATELET COUNT (AUTO) 100 K/uL (140-450); RED BLOOD CELL COUNT(AUTO) 3.74 MIL/uL (4.20-6.10); RED CELL DISTRIBUTION WIDTH 34.5 % (11.6-13.7); WHITE BLOOD COUNT (AUTO) 7.7 K/uL (4.8-10.8)
[2018-11-02 07:48] LABS: MAGNESIUM 2.1 mg/dL (1.8-2.4); PHOSPHORUS 3.3 mg/dL (2.5-4.9)
[2018-11-02 08:00] VITALS: BP 109/64
[2018-11-02 08:43] LABS: LYMPHOCYTES % (MANUAL) 14 % (20-46); MONOCYTES % (MANUAL) 7 % (5-12)
[2018-11-02 08:44] LABS: EOSINOPHILS % (MANUAL) 2 % (0-4)
[2018-11-02] MEDS: CARVEDILOL 6.25 MG TAB PO SCH (09:00)
[2018-11-02] MEDS: AMIODARONE 200 MG TAB PO SCH (09:00)
[2018-11-02] MEDS: LACTOBACILLUS RHAMNOSUS GG 1 EACH CAP PO SCH (09:20)
[2018-11-02] MEDS: CARBIDOPA/LEVODOPA 25/100 MG 1 TAB PO SCH (09:20)
[2018-11-02] MEDS: FERROUS GLUCONATE 324 MG TAB PO SCH (09:20)
[2018-11-02] MEDS: FOLIC ACID 1 MG TAB PO SCH (09:21)
[2018-11-02] MEDS: QUEtiapine FUMARATE 25 MG TAB PO SCH (09:21)
[2018-11-02 12:00] VITALS: BP 111/61
[2018-11-02 15:08] LABS: FOLIC ACID 10.4 ng/mL (>3.0)
== END 2018-11-02 16:20 | disposition home or self-care (01) | DRG 871 ==
LOC: MED 13:14 → MIC 16:37 → MTU 10-31 18:35
PROVIDERS: ADMIT Internal Medicine Pulmonary Disease; ATTEND Internal Medicine Pulmonary Disease
PROC: 30233N1 Transfusion of Nonautologous Red Blood Cells into Peripheral Vein, Percutaneous Approach (ICD-10-PCS; principal; 2018-10-28)
DX: A41.9 Sepsis, unspecified organism (principal); I21.A1 Myocardial infarction type 2; E43 Unspecified severe protein-calorie malnutrition; R57.1 Hypovolemic shock; I47.1 Supraventricular tachycardia; N39.0 Urinary tract infection, site not specified; N17.9 Acute kidney failure, unspecified; I42.9 Cardiomyopathy, unspecified; I82.622 Acute embolism and thrombosis of deep veins of left upper extremity; I48.92 Unspecified atrial flutter; D64.9 Anemia, unspecified; C67.9 Malignant neoplasm of bladder, unspecified; R31.0 Gross hematuria; E78.5 Hyperlipidemia, unspecified; F20.9 Schizophrenia, unspecified; N18.9 Chronic kidney disease, unspecified; F17.210 Nicotine dependence, cigarettes, uncomplicated; G20 Parkinson's disease; I27.20 Pulmonary hypertension, unspecified; D63.8 Anemia in other chronic diseases classified elsewhere; I48.91 Unspecified atrial fibrillation; Z68.26 Body mass index [BMI] 26.0-26.9, adult; Z85.51 Personal history of malignant neoplasm of bladder
CPT/HCPCS: 36415; 71045; 80048; 80053; 81001; 82550; 82553; 82607; 82746; 83540; 83735; 83880; 84100; 84484; 85018; 85025; 85610; 85730; 86886; 86900; 86901; 86920; 87081; 87086; 93005; 93971; 96374; 96375; 99291; 99292; C1758; J0153; J0282; J0696; J1160; J1940; J3010; J3490; J7030; J7042; J7060; P9016; Q0092

== ENCOUNTER 2018-11-22 14:52 | Emergency (ER) | payer MEDICARE, OTHER ==
[~2018-11-22] VITALS: Ht 175.3 cm; Wt 56.7 kg
[~2018-11-22 14:52] MED LIST changes: +AMIO200T10 PO; -CEPH250C16 PO
[2018-11-22 14:57] VITALS: BP 104/71
--- NOTE | 2018-11-22 15:15 | NUR ---
TANIKA S/P MECHANICAL FALL TODAY. PT STATES HE WAS WALKING DOWN A [place] AND "I GOT DIZZY AND LOST MY STEP" WHEN HE FELL. PT DENIES HITTING HIS HEAD, LOC, DENIES PAIN. NO DEFORMITIES, REDNESS, SWELLING TO BODY NOTED. SIDE RAIL UP X1, BED IN LOW POSITION.
--- NOTE | 2018-11-22 15:25 | NUR ---
DR. MORAES AT BEDSIDE
--- NOTE | 2018-11-22 16:41 | NUR ---
PT RESTING IN BED, NO NEW NEEDS REQUESTED AT THIS TIME
--- NOTE | 2018-11-22 16:52 | NUR ---
SPOKE TO MO FOR FOOD SERVICE ASSISTANT OF PT. MO WILL CALL BACK WITH ETA
--- NOTE | 2018-11-22 17:20 | NUR ---
LOOKED BACK AT [facility] FOR FURTHER HEALTH INFORMATION AND NOTICED PT LAST ADMISSION FOR HGB 2.4. SUGGESTED TO DR. MORAES TO RUN CBC & HE AGREED.
--- NOTE | 2018-11-22 17:30 | NUR ---
CHANGED PT BRIEF AND NOTICED IT WAS FULL OF BLOOD. NOTIFIED DR. MORAES. PT DENIES RECTAL OR PENILE PAIN.
[2018-11-22] MEDS ORDERED: NACL 0.9% 1,000 ML IV ONE (17:45)
[2018-11-22 18:22] LABS: BASOPHILS # (AUTO) 0.1 K/uL (0.00-0.22); BASOPHILS % (AUTO) 1.2 % (0.0-2.0); EOSINOPHILS % (AUTO) 0.7 % (0.0-4.0); LYMPHOCYTES # (AUTO) 0.7 K/uL (2.0-11.5); LYMPHOCYTES % (AUTO) 10.8 % (20.5-51.1); MEAN CORPUSCULAR HEMOGLOBIN 24 pg (27-31); MEAN CORPUSCULAR HGB CONC 32 g/dL (33-37); MEAN CORPUSCULAR VOLUME 74.2 fL (80-94); MONOCYTES # (AUTO) 0.6 K/uL (0.8-1.0); MONOCYTES % (AUTO) 8.5 % (1.7-9.3); NEUTROPHILS # (AUTO) 5.4 K/uL (1.8-7.7); NEUTROPHILS % (AUTO) 78.8 % (42.2-75.2); PLATELET COUNT (AUTO) 357 K/uL (140-450); RED BLOOD CELL COUNT(AUTO) 2.62 MIL/uL (4.20-6.10); RED CELL DISTRIBUTION WIDTH 29.9 % (11.6-13.7); WHITE BLOOD COUNT (AUTO) 6.9 K/uL (4.8-10.8)
[2018-11-22 18:29] LABS: HEMATOCRIT 19.4 % (36-52); HEMOGLOBIN 6.2 g/dL (12.0-18.0)
[2018-11-22 18:38] LABS: ANION GAP 10.8 (8-16); CHLORIDE 98 mmol/L (98-107); GLUCOSE 115 mg/dL (74-106); POTASSIUM 3.8 mmol/L (3.5-5.1); SODIUM SERUM 134 mmol/L (136-145); UREA NITROGEN, BLOOD 17 mg/dL (7-18)
[2018-11-22 18:44] LABS: ALBUMIN 2.6 g/dL (3.4-5.0); ASPARTATE AMINOTRANSFERASE 16 U/L (15-37); TOTAL BILIRUBIN 0.3 mg/dL (0.0-1.0)
--- NOTE | 2018-11-22 18:55 | NUR ---
PT DEFACATED AND URINATED ALL OVER FLOOR. CLEANED UP WITH EVS AND INFORMED PT TO CALL WHEN HE NEEDS ASSISTANCE TO RESTROOM.
--- NOTE | 2018-11-22 19:31 | NUR ---
GAVE REPORT TO RICHIE NEW FOR CONTIUATION OF CARE
--- NOTE | 2018-11-22 22:01 | NUR ---
2142 blood transfusion initiated, no s/s of any allergic reaction at this time, will continue to monitor closely.
[2018-11-23] MEDS ORDERED: FUROSEMIDE 40 MG/4 ML VIAL IVP SCH (00:10)
--- NOTE | 2018-11-23 00:15 | NUR ---
BLOOD TRANSFUSION COMPLETE, WILL WAIT FOR THE LAB
[2018-11-23 00:26] LABS: BASOPHILS # (AUTO) 0.1 K/uL (0.00-0.22); EOSINOPHILS # (AUTO) 0.1 K/uL (0-0.4); MEAN CORPUSCULAR HEMOGLOBIN 25 pg (27-31); MEAN CORPUSCULAR HGB CONC 33 g/dL (33-37); NEUTROPHILS # (AUTO) 6.6 K/uL (1.8-7.7)
[2018-11-23 00:38] LABS: BASOPHILS % (AUTO) 1.1 % (0.0-2.0); EOSINOPHILS % (AUTO) 0.8 % (0.0-4.0); HEMATOCRIT 22.3 % (36-52); LYMPHOCYTES # (AUTO) 0.7 K/uL (2.0-11.5); MEAN CORPUSCULAR VOLUME 76.3 fL (80-94); MONOCYTES # (AUTO) 0.6 K/uL (0.8-1.0); MONOCYTES % (AUTO) 7.7 % (1.7-9.3); NEUTROPHILS % (AUTO) 81.4 % (42.2-75.2); PLATELET COUNT (AUTO) 307 K/uL (140-450); RED BLOOD CELL COUNT(AUTO) 2.92 MIL/uL (4.20-6.10); RED CELL DISTRIBUTION WIDTH 27.1 % (11.6-13.7); WHITE BLOOD COUNT (AUTO) 8.1 K/uL (4.8-10.8)
[2018-11-23 00:52] LABS: HEMOGLOBIN 7.4 g/dL (12.0-18.0)
--- NOTE | 2018-11-23 02:20 | NUR ---
PT LABS CAME BACK, ANOTHER UNIT OF PRBC IS RUNNING, WILL CONTINUE TO MONITOR CLOSELY.
--- NOTE | 2018-11-23 07:25 | NUR ---
REPORT RECEIVED FROM RICHIE NEW.
--- NOTE | 2018-11-23 08:30 | NUR ---
PT HAD BOWEL MOVEMENT. CLEANED PT AND NEW DIAPPER PLACED.
--- NOTE | 2018-11-23 10:04 | NUR ---
PT IS RESTING IN BED WITH EYES OPEN. VSS.
--- NOTE | 2018-11-23 10:15 | NUR ---
CALLED AND SPOKE TO MO FROM [facility]. I WANTED TO GET AN UPDATE ON PATIENT'S TRANSPORTATION ARRIVAL. SPEAKING TO MO SHE IS NOW STATING THAT SHE CANNOT ACCEPT THE PATIENT OR TAKE CARE OF THE PATIENT. SHE CLAIMS THAT PATIENT WILL NEED MORE CARE, ROUND THE CLOCK CARE THAT SHE IS NOT ABLE TO PROVIDE SINCE SHE IS A BOARDING CARE FACILITY. MO STATES SHE IS CALLING [facility] TO "FIGURE SOMETHING OUT." i CALLED AND SPOKE WITH ER ADMITTING ANNABELLE TO SEE IF WE CAN RE-CONTACT KATIEMI. I ALSO SPOKE WITH CLEMENTINA FROM [employer] [employer] AND STATES SHE SPOKE TO MO YESTERDAY AND I ADVISED HER OF THE SITUATION
--- NOTE | 2018-11-23 11:35 | NUR ---
PT HAD BOWEL MOVEMENT. CLEANED PT. NEW BEDSHEET AND DIAPPER PLACED. VSS.
--- NOTE | 2018-11-23 12:30 | NUR ---
PT IS EATING IN BED.
--- NOTE | 2018-11-23 12:55 | NUR ---
PT SITTING UP. PT PROVIDED LUNCH.
--- NOTE | 2018-11-23 13:52 | NUR ---
Patient to be transferred to [facility], room 2149. Is being transferred due to hematuria, blood loss anemia, s/p mechanical fall. Receiving facility has accepting physician and available space. ER physician has signed transfer form. Patient or responsible alliance party has agreed to transfer and signed form. Patient belongings inventoried and will be sent with patient. Copy of nursing notes, lab reports, EKG, Physicians Orders and X-rays to be sent with patient. Report called to RICHIE Hayes at receiving facility. [facility] ambulance service has been called for transfer.
--- NOTE | 2018-11-23 15:00 | NUR ---
PT HAD BOWEL MOVEMENT. CLEANED PT AND NEW DIAPPER CHANGED. PT'S VSS.
--- NOTE | 2018-11-23 15:08 | NUR ---
[facility] IS AT BEDSIDE AND TRANSFERING PT CASA YENNIFER.
[2018-11-23 15:11] VITALS: BP 127/65
--- NOTE | 2018-11-23 15:11 | NUR ---
PT HAS BEEN TRANSFERED TO [facility] THROUGH [facility]. CALLED THE RECEIVING FACILITY AND PROVIDED ETA. PT'S VSS.
--- NOTE | 2018-11-23 15:25 | NUR ---
SPOKE WITH MO FROM [facility] AND SPOKE WITH MO. I LET HER KNOW PATIENT WAS TRANSPORTED TO [facility] AND WAS GOING TO ROOM 2147 SO SHE CAN FOLLOW UP WITH HIM.
== END 2018-11-23 15:15 | disposition short-term general hospital (02) ==
LOC: MED 14:52
DX: R31.9 Hematuria, unspecified (principal); D50.0 Iron deficiency anemia secondary to blood loss (chronic); I10 Essential (primary) hypertension; F20.9 Schizophrenia, unspecified; G20 Parkinson's disease; E78.5 Hyperlipidemia, unspecified; F17.210 Nicotine dependence, cigarettes, uncomplicated; Z98.890 Other specified postprocedural states; Z79.899 Other long term (current) drug therapy; W19.XXXA Unspecified fall, initial encounter; Y93.89 Activity, other specified; Y92.89 Other specified places as the place of occurrence of the external cause; Y99.8 Other external cause status
CPT/HCPCS: 36415; 70450; 71045; 80053; 85025; 86886; 86900; 86901; 86920; 93005; 96361; 96374; 99284; J1940; J7030; P9016; Q0092